=== PATIENT | female | born 1940 | race Caucasian/White ===

== ENCOUNTER 2017-11-09 15:09 | Outpatient (CLI) | payer MEDICARE | END 2017-11-09 15:10 | disposition home or self-care (01) | LOC: MERGE 15:09 → BICRAD 15:09 | PROVIDERS: ATTEND Internal Medicine | DX: R05 Cough (principal); J44.9 Chronic obstructive pulmonary disease, unspecified; I70.0 Atherosclerosis of aorta | CPT/HCPCS: 71046 ==

== ENCOUNTER 2018-01-22 18:35 | Observation (INO) | payer MEDICARE ==
[2018-01-22] MEDS ORDERED: Adacel (T-DAP) 0.5 ML VIAL ONE (19:03)
[2018-01-22] MEDS ORDERED: traMADol HCl 50 MG TAB ONE (19:35)
--- NOTE | 2018-01-22 20:42 | CT ---
CT OF BRAIN PERFORMED WITHOUT CONTRAST ENHANCEMENT: 01/22/18 HISTORY: Patient is status post fall, hitting occipital region of head. There is generalized ventricular and sulcal prominence with decreased attenuation of the periventricu lar white matter consistent with some chronic white matter change. There is no signs of intracerebral hemorrhage or extra-axial fluid collections. Mastoid air cells and visualized sinuses are clear. A p osterior scalp hematoma is noted. IMPRESSION: No acute intracranial abnormalities. POS: [facility]
--- NOTE | 2018-01-22 21:03 | CT ---
CT OF CERVICAL SPINE PERFORMED WITHOUT CONTRAST ENHANCEMENT: 01/22/18 HISTORY: Fall with neck pain. The vertebral bodies are normal in height. There is disc narrowing at C4-5 and more pronounced narrow ing at C5-6. There is minimal anterolisthesis of 3 to 4 mm of C4 on C5. There are degenerative facet changes present. At the C5-6 level, there is left sided foraminal narrowing. There is no CT evidence for fracture. Lung apices show emphysematous change. IMPRESSION: No CT evidence of fracture or the cervical spine. POS: [facility]
--- NOTE | 2018-01-22 21:31 | CT ---
CT OF CHEST PERFORMED WITHOUT CONTRAST ENHANCEMENT: 01/22/18 HISTORY: Patient fell backwards. Chest pain radiating to back. There are marked emphysematous lung changes seen. There is no focal infiltrative process. calcified g ranuloma is seen in the left lower lobe. The thoracic aorta shows atherosclerotic change that is normal in caliber. Moderate coronary artery c alcifications are present. Small hiatal hernia noted. The visualized liver parenchyma shows no focal findings. The right and left adrenal glands are normal . On the right side, there are some old right rib fractures, but what appear to be probable acute right fifth, sixth, and seventh rib fractures. On the left side there is buckling to multiple anterior rib s beginning at four and extending to the ninth rib. I do not see definite fracture lines but these co uld represent acute fractures. Clinical correlation as to whether patient has pain in that region. Th is does appear to represent an interval change as compared to a CT angio of the chest done 11/20/14. There are scoliotic changes to the spine and arthritic change. IMPRESSION: 1. Bilateral anterior rib fractures as discussed above. Some of these do appear acute in nature. No pneumothorax. 2. Emphysematous lung change. 3. Extensive coronary artery calcifications. POS: [facility]
[2018-01-22] MEDS ORDERED: Ketorolac Tromethamine 30 MG/ML VIAL ONE (21:35)
[2018-01-22] MEDS ORDERED: Dextrose 5% in Water 1,000 ML IV PRN (23:28)
[2018-01-22] MEDS ORDERED: hydrALAZINE 20 MG/ML VIAL SLOW IVP PRN (23:28)
[2018-01-22] MEDS ORDERED: Dextrose 50% Abboject 50 ML SYRINGE SLOW IVP PRN (23:28)
[2018-01-22] MEDS ORDERED: Ondansetron HCl/PF 4 MG/2 ML Vial IVP PRN (23:28)
[2018-01-22] MEDS ORDERED: Acetaminophen 1,000 MG in Premix Bag 1 BAG IVPB SCH (23:30)
[2018-01-22] MEDS ORDERED: Rib Fracture Protocol PO SCH (23:30)
[2018-01-22] MEDS ORDERED: Sodium Chloride 0.9% 1,000 ML IV SCH (23:30)
[2018-01-22] MEDS ORDERED: Cyclobenzaprine 10 MG TAB PO PRN (23:45)
[2018-01-23] MEDS: Ondansetron ODT 4 MG TAB PO PRN ×2 (00:21→06:34)
[2018-01-23] MEDS: traMADol HCl 50 MG TAB PO SCH ×4 (00:21→19:00)
[2018-01-23] MEDS: Acetaminophen 500 MG TAB PO SCH ×5 (00:29→19:05)
--- NOTE | 2018-01-23 01:22 | HP ---
DATE OF ADMISSION: 01/22/2018 REQUESTING PHYSICIAN: Nupur Hernandez MD ATTENDING SURGEON: Javier Loja MD HISTORY OF PRESENT ILLNESS: The patient is a 77-year-old woman who was moving a grocery ca rt up over a curb when she pulled it up and over and lost her balance and fell backward. The patient had immediate pain to her right posterior chest. She denied loss of consciousness. She denies any shortness of breath, dizziness, chest pain, or any syncopal type episodes prior to her fall. The pat ient was able to call 911 and she was brought to the emergency department by ground EMS where she und erwent evaluation and examination was noted to have rib fractures on her right side, specifically her right 5th, 6th, and 7th ribs, at which time we were asked to admit the patient for pain control. ALLERGIES: ZYRTEC, SERTRALINE. CURRENT MEDICATIONS: Carvedilol, prednisone, simvastatin, calcium, vitamin D3, Flexeril, ferrous sul fate, gabapentin, losartan, Symbicort, albuterol, budesonide, alprazolam, omeprazole, Tylenol, magnes ium oxide, Breo Ellipta. PAST MEDICAL HISTORY: Peripheral neuropathy, hypercholesterolemia, hypertension, COPD, breast cancer . PAST SURGICAL HISTORY: Right mastectomy. SOCIAL HISTORY: The patient lives at home independently, uses a walker to ambulate. Denies drug, al cohol, or tobacco use. FAMILY HISTORY: Hypertension. REVIEW OF SYSTEMS: Ten-point review of systems negative, unless otherwise stated. PHYSICAL EXAMINATION: VITAL SIGNS: Blood pressure 174/97, heart rate 92, respirations 18, oxygen saturation is 98% on room air, temperature is 97.6. GENERAL: The patient is resting comfortably in bed. She is awake, alert, and oriented, appropriate. Colby coma scale is 15. HEENT: Head is normocephalic, atraumatic. Eyes: Extraocular motion intact. PERRLA bilaterally. E ars are atraumatic without discharge. Nose atraumatic with discharge. Oropharynx is clear. NECK: Nontender. Trachea is midline. No JVD. CHEST: With scant rhonchi and scant wheezes bilaterally with moderate inspiratory and expiratory eff ort which is limited secondary to pain at this time. HEART: Regular rate and rhythm. ABDOMEN: Soft, flat, nontender with active bowel sounds. Pelvis is stable. EXTREMITIES: Neurovascularly intact x4. Capillary refill is less than 3 seconds. Pulses are 2+. BACK: Tender to palpation on the right posterior chest consistent with her rib fractures. No midlin e tenderness. LABORATORY DATA: There was no laboratory drawn in the emergency department. RADIOGRAPHIC FINDINGS: CT of the brain without contrast shows no acute intracranial abnormalities. CT of the C-spine without contrast shows no evidence of fracture of the cervical spine. CT of the ch est without contrast shows bilateral anterior rib fractures of the 5th, 6th, and 7th ribs. The patie nt also has a buckling on the left side extending from the 4th through 9th ribs and determine of whet her these are acute fractures or not. Of note, the patient did not have any left-sided chest pain up on my examination. ASSESSMENT AND PLAN: 1. Status post ground level fall. 2. Acute right 5th, 6th, and 7th rib fractures. 3. Chronic obstructive pulmonary disease. 4. Hypertension. 5. Pain is secondary to acute trauma. Plan will be to admit the patient to the surgical floor, initiate the rib fracture protocol, pulmonar y toilet, gastritis, mechanical deep vein thrombosis prophylaxis. Once we have an accurate home medi cine list, we will resume her home medications also. Evaluation examination, radiographic and labora tory findings will be discussed with Dr. Abraham after this dictation.
[2018-01-23 02:02] VITALS: BMI 23.3
[2018-01-23 05:51] LABS: #Eosinphils 0.1 thou/uL (0.0-0.7); #Lymphocytes 1.1 thou/uL (1.20-3.40); #Monocytes 0.7 thou/uL (0.11-0.59); #Neutrophils 6.7 thou/uL (1.40-6.50); %Basophils 0.4 % (0.0-1.0); %Eosinophils 1.6 % (0.0-10.0); %Lymphocytes 12.7 % (21.0-51.0); %Monocytes 8.3 % (0.0-10.0); Hemoglobin 12.8 g/dL (12.0-16.0); Mean Corpuscular HGB CONC 33.1 g/dL (32.0-36.0); Mean Corpuscular Hemoglobin 31.1 pg (27.0-31.0); Mean Corpuscular Volume 93.8 fl (81.0-99.0); Mean Platelet Volume 9.4 fL (7.4-10.4); Platelet Count 145 thou/uL (130-400); RBC Distribution Width 11.8 % (11.5-14.5); Red Blood Cell (RBC) Count 4.12 mill/uL (4.20-5.40); White Blood Cell (WBC) Count 8.7 thou/uL (4.8-10.8)
[2018-01-23 06:03] LABS: Anion Gap 12 mmol/L (10-20); BUN (Urea Nitrogen) 10 mg/dL (9.8-20.1); Calc. Creatinine Clearance 64 mL/min (70-130); Calcium 8.6 mg/dL (7.8-10.44); Carbon Dioxide 23 mmol/L (23-31); Chloride 96 mmol/L (98-107); Estimated GFR-MDRD Greater than 90; Glucose 130 mg/dL (83-110); Magnesium 1.6 mg/dL (1.6-2.6); Phosphorus 3.1 mg/dL (2.3-4.7); Potassium 3.8 mmol/L (3.5-5.1); Sodium 127 mmol/L (136-145)
[2018-01-23] MEDS: Ibuprofen 600 MG TAB PO SCH ×3 (06:38→21:31)
[2018-01-23] MEDS ORDERED: ALPRAZolam 0.25 MG TAB PO PRN (07:46)
[2018-01-23] MEDS ORDERED: Budesonide 0.5 MG/2 ML NEB NEB PRN (07:46)
--- NOTE | 2018-01-23 08:11 | RAD ---
SINGLE VIEW CHEST: Date: 01/23/18 COMPARISON: 01/04/11. HISTORY: Right rib fracture. FINDINGS: Single view of the chest shows normal sized cardiomediastinal silhouette with atherosclerotic calcifi cations in the aorta. Increased interstitial lung markings and hyperexpansion of the lungs are likely secondary to COPD. Biapical pleural thickening is seen. There is a calcified granuloma projecting ov er the left thorax, unchanged. There is no evidence of pneumothorax or pleural effusion. Atelectasis is seen in the lung bases. IMPRESSION: No evidence of acute cardiopulmonary disease. POS: [facility]
[2018-01-23] MEDS ORDERED: Losartan 25 MG TAB PO SCH ×2 (09:00→21:00)
[2018-01-23] MEDS ORDERED: Gabapentin 100 MG CAP PO SCH (09:00)
[2018-01-23] MEDS ORDERED: Promethazine 25 MG TAB PO PRN (09:28)
[2018-01-23] MEDS ORDERED: Promethazine HCl 25 MG/ML VIAL IM PRN (09:28)
[2018-01-23] MEDS ORDERED: Scopolamine 1.5 mg/72 hour Patch TD SCH (11:30)
[2018-01-23] MEDS: Polyethylene Glycol 3350 17 GM Packet PO SCH (11:42)
[2018-01-23] MEDS: Senokot S 8.6-50 MG TAB PO SCH ×2 (11:42→21:27)
[2018-01-23] MEDS: Carvedilol 3.125 MG TAB PO SCH ×2 (14:59→21:26)
[2018-01-23] MEDS: Famotidine 20 MG TAB PO SCH ×2 (14:59→21:26)
[2018-01-23] MEDS: predniSONE 5 MG TAB PO SCH (15:04)
[2018-01-23] MEDS: Gabapentin 300 MG CAP PO SCH (16:50)
[2018-01-23] MEDS ORDERED: Atorvastatin Calcium 10 MG TAB PO SCH (21:00)
[2018-01-23] MEDS ORDERED: Gabapentin 300 MG CAP PO SCH (21:00)
[2018-01-23] MEDS: Metoclopramide HCl 10 MG/2 ML VIAL IVP SCH (21:32)
[2018-01-24] MEDS: Acetaminophen 500 MG TAB PO SCH ×4 (00:03→17:35)
[2018-01-24] MEDS: traMADol HCl 50 MG TAB PO SCH ×4 (00:03→17:35)
[2018-01-24] MEDS: Ibuprofen 600 MG TAB PO SCH ×2 (05:56→15:02)
[2018-01-24] MEDS: Metoclopramide HCl 10 MG/2 ML VIAL IVP SCH ×2 (05:58→15:04)
[2018-01-24] MEDS: predniSONE 5 MG TAB PO SCH (09:03)
[2018-01-24] MEDS: Carvedilol 3.125 MG TAB PO SCH (09:03)
[2018-01-24] MEDS: Senokot S 8.6-50 MG TAB PO SCH (09:04)
[2018-01-24] MEDS: Gabapentin 300 MG CAP PO SCH (09:04)
[2018-01-24] MEDS: Famotidine 20 MG TAB PO SCH (09:04)
[2018-01-24] MEDS: Polyethylene Glycol 3350 17 GM Packet PO SCH (09:07)
--- NOTE | 2018-01-24 14:36 | PRG-2 ---
DATE OF SERVICE: 01/24/2018 ATTENDING PHYSICIAN: Scottie Jaffe M.D. SUBJECTIVE: The patient is a 77-year-old female who is status post ground level fall where she suffe red 3 right rib fractures, 5, 6 and 7. The patient reports pain is well controlled, but has refused to get out of bed. The patient also with poor p.o. intake secondary to nausea and vomiting. She was given a scopolamine patch yesterday evening and reports that has improved her nausea. Since then, s he did order breakfast this morning, but reports that food is bad. She at baseline walks with a walk er and has not yet tried to get out of bed since her injury. She is working with incentive spirometr y and has some improvement from yesterday. No acute events overnight. OBJECTIVE: VITAL SIGNS: This morning, temperature 97.8, pulse 82, respiratory rate 18, O2 sats 92% on 2 liters nasal cannula and blood pressure is 150/74. GENERAL: The patient is alert and oriented x4, in no acute distress. HEENT: Atraumatic, normocephalic. HEART: Regular rate and rhythm. LUNGS: Clear to auscultation bilaterally. Equal chest rise. No increased work of breathing. EXTREMITIES: Neurovascularly intact x4. LABORATORY DATA: No new labs to review. IMAGING: No new images to review. ASSESSMENT: 1. Status post ground level fall. 2. Acute right 5th, 6th and 7th rib fractures. 3. Chronic obstructive pulmonary disease. 4. Hypertension. 5. Acute traumatic pain. PLAN: Plan to continue with current pain regimen and encourage the patient to take p.r.n., tramadol for breakthrough pain so she can participate with physical therapy and occupational therapy. We will place rehab screening with the patient's inability to get out of bed. She is encouraged to continue incentive spirometry with underlying chronic obstructive pulmonary disease. Continue scopolamine pa tch for nausea and vomiting and continue to monitor her p.o. intake. Case management to work on janina campos in rehab facility for strength conditioning. The patient was seen and evaluated by Dr. Jaffe who formulated the plan with me.
[2018-01-24] MEDS ORDERED: Heparin 5,000 UNITS/ML VIAL SC SCH (15:00)
[2018-01-24 15:49] VITALS: BP 145/69; TEMP 98.9
--- NOTE | 2018-01-28 19:37 | DIS-2 ---
DATE OF ADMISSION: 01/22/2018 DATE OF DISCHARGE: 01/24/2018 RESIDENT: Aisha Cook D.O. ATTENDING PHYSICIAN: Dr. Jaffe. CONSULTATIONS: None. PROCEDURE/IMAGIN. Brain CT which showed no acute intracranial abnormality. 2. Cervical spine CT which showed no evidence for fracture and a chest CT which showed bilateral ant erior rib fractures. This is the 6th and 7th ribs and emphysematous lung changes. PRIMARY DIAGNOSES: 1. Status post ground level fall. 2. Acute right 5th, 6th and 7th rib fractures. 3. Chronic obstructive pulmonary disease. 4. Hypertension. 5. Acute traumatic pain. DISCHARGE MEDICATIONS: 1. Iron 20 mg p.o. daily. 2. vitamins. 3. Calcium carbonate. 4. Vitamin D3. 5. Xanax 0.25 mg p.o. q.6 hours p.r.n. 6. Pulmicort 1 puff inhaled q.i.d. p.r.n. 7. DuoNebs 1 puff inhaled q.6 hours. 8. Ventolin HFA 2 puffs inhaled q.4 hours. 9. Gabapentin 600 mg p.o. q.a.m., 900 mg p.o. at bedtime. 10. Losartan 100 mg p.o. daily. 11. Coreg 3.125 p.o. b.i.d. 12. Prednisone 5 mg p.o. q.a.m. 13. Zocor 20 mg p.o. at bedtime. 14. Omeprazole 20 mg p.o. b.i.d. 15. Ultram 100 mg p.o. q.6 hours p.r.n. 16. Zofran 4 mg p.o. q.6 hours p.r.n. nausea, vomiting. 17. Motrin 600 mg p.o. q.8 hours. 18. Flexeril 5 mg p.o. t.i.d. p.r.n. 19. Tylenol 1000 mg p.o. q.6 hours. DISCONTINUED MEDICATIONS: None. HISTORY OF PRESENT ILLNESS/HOSPITAL COURSE: The patient is a 77-year-old female who is status post g round level fall where she sustained 3 right rib fractures, 5, 6 and 7. The patient did have some na usea and vomiting and poor p.o. intake at first, but resolved with scopolamine patch. She reported s evere pain with rib fractures and because of them was having difficulty taking big deep breaths and p erforming ADLs. Case management worked on placement and found her a place at rehab facility. Recomm end continuing incentive spirometry and PT and OT. No operative intervention needed. The patient es tablished diet and bowel and bladder function well. She was discharged to rehab facility in stable c ondition with a regular diet. DISCHARGE INSTRUCTIONS: 1. Location: Rehabilitation. 2. Diet: Regular. 3. Activity: As tolerated. Continue incentive spirometry 10 times per hour. 4. Follow up with Dr. Christina Gunn, primary care provider in 1-2 weeks.
== END 2018-01-24 18:30 ==
LOC: ERS 18:35 → SURG B 23:17
PROVIDERS: ADMIT Surgery; ATTEND Surgery
DX: S22.41XA Multiple fractures of ribs, right side, initial encounter for closed fracture (principal); J44.9 Chronic obstructive pulmonary disease, unspecified; I10 Essential (primary) hypertension; G89.11 Acute pain due to trauma; Z88.8 Allergy status to other drugs, medicaments and biological substances; Z79.51 Long term (current) use of inhaled steroids; Z79.52 Long term (current) use of systemic steroids; Z79.899 Other long term (current) drug therapy; W18.39XA Other fall on same level, initial encounter
CPT/HCPCS: 70450; 71045; 71250; 72125; 80048; 83735; 84100; 85025; 94640 ×3; 96374; 96375; 96376; 97116; 97530 ×2; 99285; G0378; G8978; G8979; 36415; 90715; G0390; J0131; J0360; J1644; J1885; J2765; J7620; Q0162

== ENCOUNTER 2018-04-08 14:18 | Outpatient (CLI) | payer MEDICARE | END 2018-04-08 14:19 | disposition home or self-care (01) | LOC: BICMAMMO 14:18 | PROVIDERS: ATTEND Internal Medicine | DX: Z12.31 Encounter for screening mammogram for malignant neoplasm of breast (principal); Z80.3 Family history of malignant neoplasm of breast; Z85.3 Personal history of malignant neoplasm of breast; Z80.8 Family history of malignant neoplasm of other organs or systems | CPT/HCPCS: 77063; 77067 ==

== ENCOUNTER 2018-04-15 09:19 | Outpatient (CLI) | payer MEDICARE ==
--- NOTE | 2018-04-15 10:17 | RAD ---
PA AND LATERAL CHEST: Comparison: 12-13-17 History: Dyspnea. FINDINGS: Heart size is within normal limits. There are atherosclerotic changes of the aorta. Chronic lung cruz ges are stable. Surgical clips are seen in the right axilla. IMPRESSION: Stable chest. POS: [facility]
== END 2018-04-15 09:20 | disposition home or self-care (01) ==
LOC: RAD 09:19
PROVIDERS: ATTEND Internal Medicine Critical Care Medicine
DX: R06.00 Dyspnea, unspecified (principal)
CPT/HCPCS: 71046

== ENCOUNTER 2018-04-22 08:55 | Outpatient (CLI) | payer MEDICARE ==
--- NOTE | 2018-04-23 11:49 | RAD ---
MODIFIED BARIUM SWALLOW: Date: 04/22/18 HISTORY: Dysphagia. Difficulty swallowing. FLUORO TIME: 40 seconds. FINDINGS/IMPRESSION: Exam performed by speech pathology with multiple consistencies. Video review is available and shows g ood bolus formation and retropulsion. Good initiation of swallowing. With the thinner liquids, some d eep penetration was apparent. Moderate pooling within the vallecula and piriform sinuses with moderat e clearance upon additional swallows. No evidence of obstruction. No wilberto aspiration. Difficulty with the barium tablet is documented, getting hung at the vallecula and again at the mid e sophagus above the level of the aortic arch. The esophagus below the level of the hypopharynx was incompletely evaluated. Please see separate jose lopes report from speech pathology. POS: [facility]
== END 2018-04-22 08:56 | disposition home or self-care (01) ==
PROVIDERS: ATTEND Otolaryngology Plastic Surgery within the Head & Neck
DX: R13.13 Dysphagia, pharyngeal phase (principal); R63.3 Feeding difficulties
CPT/HCPCS: 74230; G8996-GN-CJ; G8997-GN-CI; G8998-GN-CJ

== ENCOUNTER 2018-05-16 11:58 | Day surgery (SDC) | payer MEDICARE ==
[2018-05-15 10:15] VITALS: BMI 22.4
--- NOTE | 2018-05-16 16:11 | OP ---
DATE OF PROCEDURE: 05/16/2018 TITLE OF PROCEDURE: Esophagogastroduodenoscopy with balloon dilation and biopsy. PREPROCEDURE DIAGNOSES: 1. Dysphagia. 2. History of distal Schatzki ring. 3. Chronic globus sensation. POSTPROCEDURE DIAGNOSES: 1. Examination to second portion of duodenum. 2. Nonobstructing distal Schatzki ring at 37 cm from the incisors, dilated with a 15 mm TTS balloon. 3. A 3 cm hiatal hernia. 4. Normal stomach. 5. Normal duodenum. PROCEDURE IN DETAIL: Written informed consent was obtained. The patient was brought to the endoscop y suite. Total intravenous anesthesia was provided by Mr. Marquis Slade CRNA. The patient was placed in the left lateral decubitus position. A bite block was inserted into the mouth. A AisleFinder d iagnostic gastroscope was introduced into the oral cavity and the esophagus was carefully intubated. The gastroscope was advanced under direct visualization to the second portion of the duodenum. Endo scopic findings revealed a mild to moderate partially obstructing distal Schatzki ring that was ident ified at 37 cm from the incisors. The gastroscope was able to traverse the ring without dilute relat ion at that point. A 3 cm hiatal hernia was identified. The stomach and duodenum were examined and appeared unremarkable. The retroflexed view demonstrated the hiatal hernia. Using a 15 mm TTS ballo on, the distal Schatzki ring was dilated at the three different stages of 12 mm, 13.5 mm, and 15 mm b alloon diameter. Post-dilation, the ring appeared to be broken and a small mucosal disruption was id entified at 2 points. There was no active bleeding or overt perforation. Biopsies were obtained in the mid esophagus at 30 cm for histopathology. The stomach and esophagus were decompressed as the en doscope was completely removed from the patient. She was transferred to the day stay surgery area fo r post-procedure monitoring. There were no immediate complications. RECOMMENDATIONS: 1. Await biopsy results. 2. Ask the patient to call me in 1 week for biopsy results. 3. Continue omeprazole. 4. Discontinue the use of naproxen - diphenhydramine pill at bedtime. 5. Discontinue use of ibuprofen. 6. Use Tylenol instead for analgesia. 7. Follow up in the GI Clinic in 3 weeks or 06/12/2018.
== END 2018-05-16 15:10 | disposition home or self-care (01) ==
LOC: SDC 11:58
PROVIDERS: ATTEND Internal Medicine Gastroenterology
PROC: 0D738ZZ Dilation of Lower Esophagus, Via Natural or Artificial Opening Endoscopic (ICD-10-PCS; principal; 2018-05-16)
PROC: 0DB28ZX Excision of Middle Esophagus, Via Natural or Artificial Opening Endoscopic, Diagnostic (ICD-10-PCS; 2018-05-16)
DX: K22.2 Esophageal obstruction (principal); K44.9 Diaphragmatic hernia without obstruction or gangrene; K21.0 Gastro-esophageal reflux disease with esophagitis; J44.9 Chronic obstructive pulmonary disease, unspecified; Z87.891 Personal history of nicotine dependence; Z86.711 Personal history of pulmonary embolism; Z79.82 Long term (current) use of aspirin; Z79.899 Other long term (current) drug therapy; Z88.8 Allergy status to other drugs, medicaments and biological substances
CPT/HCPCS: 88305; 88312; 88313

== ENCOUNTER 2018-05-27 08:55 | Outpatient (CLI) | payer MEDICARE ==
--- NOTE | 2018-05-27 09:31 | RAD ---
CHEST 2 VIEWS: COMPARISON: 04/15/18. History Dyspnea. FINDINGS: Atherosclerosis of the aorta. Normal cardiac silhouette. The pulmonary vessels and hilum are normal . Costophrenic angles are clear. Hyperinflation with chronic changes. No consolidation or masses. No pneumothorax or osseous abnormalities. IMPRESSION: 1. Hyperinflation. Chronic changes. 2. Atherosclerosis. POS: [facility]
== END 2018-05-27 08:56 | disposition home or self-care (01) ==
LOC: RAD 08:55
PROVIDERS: ATTEND Internal Medicine Critical Care Medicine
DX: R06.00 Dyspnea, unspecified (principal); I70.0 Atherosclerosis of aorta; R91.8 Other nonspecific abnormal finding of lung field
CPT/HCPCS: 71046

== ENCOUNTER 2018-06-24 14:04 | Outpatient (CLI) | payer MEDICARE ==
[2018-06-24] MEDS ORDERED: ISOVUE-370 76%-LOCM 1 ML ONE (15:15)
--- NOTE | 2018-06-24 15:53 | CT ---
NONCONTRAST HIGH RESOLUTION CT THORAX: DATE: 06/24/2018. HISTORY: Coughing since ay. Difficulty swallowing. COMPARISON: CTA chest on 11/20/[address] thorax on 01/22/2018. FINDINGS: Again noted are emphysematous changes seen throughout the lungs bilaterally with larger bullous emphy sematous changes at each lung base similar to prior exams. There is biapical pleural and parenchymal scarring, some of which is partially calcified. This is also stable compared to the prior exams. T here is a parenchymal density seen at the anterior aspect of the right lung base probably in the savi on of the right middle lobe adjacent to the fissure. This is probably related to an area of pleural and parenchymal scarring. No discrete pulmonary nodule or mass is seen and there is no pleural effus ion identified. Vascular calcifications are again seen in the coronary arteries and involving the thoracic aorta. Lack of intravenous contrast limits sensitivity for evaluation of vascular structures and the mediast inum, and no definite enlarged lymph nodes are seen. Surgical clips are seen in the right axilla, and there is persistent skin thickening involving the ri ght breast unchanged from prior study in 2014. No significant bronchiectasis present and there are no ground-glass densities or subpleural reticular opacities appreciated. No other interval change from the prior exams. Degenerative changes are aga in seen in the spine and there are bilateral remote rib fractures again seen. IMPRESSION: 1. Chronic obstructive pulmonary disease and chronic lung changes similar to the prior study. Sligh tly greater pleural and parenchymal density is seen in the right middle lobe adjacent to the hemidiap hragm which is thought to be related to a greater degree of pleural and parenchymal scarring. 2. Prominent vascular calcifications. 3. Remote bilateral rib fractures. POS: [facility]
--- NOTE | 2018-06-24 16:51 | CT ---
CT NECK WITH CONTRAST: INDICATIONS: Cough. Difficulty swallowing. TECHNIQUE: Multiple axial tomograms obtained through the neck with IV enhancement. FINDINGS: The parotid glands and submandibular glands appear normal and symmetric. The thyroid is unremarkable , with tiny, low density nodules. The nasopharynx is unremarkable. The oropharynx and the base of the tongue are unremarkable. The hypopharynx is unremarkable. The right piriform sinus is asymmetrically enlarged when compared t o the left. The larynx appears unremarkable. Review of lymph node level showed no evidence of level I adenopathy. No level II, level III, or leve l IV adenopathy is seen. Level V lymph nodes are unremarkable. The nuclear station operator space, the parapharyngeal space, and the retropharyngeal space are unremarkable. Mild atherosclerotic calcification in the right bulb and proximal right ICA. Degenerative changes in the cervical spine. Posterior listhesis at C5-C6 with spondylosis encroachin g into the spinal canal. The paranasal sinuses appear well aerated. Images through the lung apices show chronic lung parenchymal changes with early emphysematous bullous change. Apical pleural thickening and apical pleural calcification. There is prominent atherosclerotic calcification and evidence of significant stenosis at the origin o f the left subclavian artery, at the aortic arch. IMPRESSION: 1. No evidence of neck mass or adenopathy. 2. 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 3. Chronic lung changes seen in the lung apices, as described. POS: [facility]
== END 2018-06-24 14:05 | disposition home or self-care (01) ==
LOC: BICCT 14:04
PROVIDERS: ATTEND Internal Medicine
DX: M54.2 Cervicalgia (principal); R05 Cough; R13.10 Dysphagia, unspecified; J44.9 Chronic obstructive pulmonary disease, unspecified; I70.8 Atherosclerosis of other arteries; S22.43XA Multiple fractures of ribs, bilateral, initial encounter for closed fracture
CPT/HCPCS: 70491; 71250

== ENCOUNTER 2018-07-04 11:01 | Outpatient (CLI) | payer MEDICARE ==
--- NOTE | 2018-07-04 14:59 | MRI ---
BRAIN MRI WITH AND WITHOUT CONTRAST: INDICATION: Hyponatremia. FINDINGS: There is patient motion degrading image quality. Moderate chronic ischemic disease is present. Ther e is mild prominence of the ventricular system. No evidence of intracranial hemorrhagic susceptibili ty. There is no restricted diffusion. No evidence of an enhancing intraaxial mass. Skull base flow voids are maintained. Teller anterior lenses are absent. There is minimal mucosal thickening of th e paranasal sinuses. IMPRESSION: 1. No evidence of an acute intracranial abnormality. 2. Moderate chronic ischemic disease. POS: [facility]
== END 2018-07-04 11:02 | disposition home or self-care (01) ==
LOC: MRI 11:01
PROVIDERS: ATTEND Internal Medicine
DX: E87.1 Hypo-osmolality and hyponatremia (principal); R13.10 Dysphagia, unspecified; I67.82 Cerebral ischemia
CPT/HCPCS: 70553

== ENCOUNTER 2018-10-10 09:58 | Outpatient (CLI) | payer MEDICARE ==
[2018-10-10] MEDS ORDERED: ISOVUE-370 76%-LOCM 1 ML ONE (10:22)
--- NOTE | 2018-10-10 13:13 | CT ---
CT ARTERIOGRAM CHEST WITH IV CONTRAST AND 3D MIP IMAGING: Date: 10/10/18 HISTORY: Vascular disease. Abnormal CTA neck. Subclavian stenosis. COMPARISON: 11/20/14. FINDINGS: Parenchymal scarring at the right apex is similar in appearance to the prior study. Lungs remain hype rinflated with scattered emphysematous changes. Good contrast opacification of the pulmonary arteries and thoracic aorta with normal branching of the great vessels. Good flow into each carotid and vertebral system. Moderate arterial calcification, mo st pronounced at the proximal to mid portion of the left subclavian artery. A short segment focus of approximately 50% stenosis at the ascending portion of the left subclavian artery is slightly greater than on the 2015 exam. Old bilateral rib fractures are apparent. IMPRESSION: 1. Atherosclerosis. Short segment focus of mild stenosis of the proximal left subclavian artery, sli ghtly worsened since the 2015 exam. 2. COPD. POS: [facility]
== END 2018-10-10 09:59 | disposition home or self-care (01) ==
LOC: BICCT 09:58
PROVIDERS: ATTEND Thoracic Surgery (Cardiothoracic Vascular Surgery)
DX: I72.8 Aneurysm of other specified arteries (principal); J44.9 Chronic obstructive pulmonary disease, unspecified; I70.8 Atherosclerosis of other arteries
CPT/HCPCS: 71275; 82565

== ENCOUNTER 2018-10-31 15:28 | Outpatient (CLI) | payer MEDICARE ==
--- NOTE | 2018-10-31 19:10 | RAD ---
CHEST TWO VIEWS: History: COPD. Cough. FINDINGS: Comparison is made with exam of 05-27-18. The heart size is normal. The aorta is tortuous. Chronic parenchymal changes and evidence of old gran ulomatous disease again seen. No focal areas of consolidation, pneumothoraces or pleural effusions id entified. The aorta is tortuous. The bony structures are stable. IMPRESSION: Stable exam. No acute cardiopulmonary process. POS: [facility]
== END 2018-10-31 15:29 | disposition home or self-care (01) ==
LOC: BICRAD 15:28
PROVIDERS: ATTEND Internal Medicine
DX: R06.00 Dyspnea, unspecified (principal); R05 Cough
CPT/HCPCS: 36415; 71046; 80053; 83880; 84443; 85027

== ENCOUNTER 2018-12-09 16:36 | Inpatient (IN) | payer MEDICARE ==
[2018-12-09 17:20] LABS: #Lymphocytes 0.6 thou/uL (1.20-3.40); #Monocytes 0.3 thou/uL (0.11-0.59); #Neutrophils 7.1 thou/uL (1.40-6.50); %Eosinophils 0.5 % (0.0-10.0); %Lymphocytes 7.7 % (21.0-51.0); %Monocytes 3.4 % (0.0-10.0); %Neutrophils 88.3 % (42.0-75.0); Hemoglobin 12.6 g/dL (12.0-16.0); Mean Corpuscular HGB CONC 31.6 g/dL (32.0-36.0); Mean Corpuscular Hemoglobin 30.7 pg (27.0-31.0); Mean Corpuscular Volume 97.2 fL (78.0-98.0); RBC Distribution Width 12.2 % (11.5-14.5); Red Blood Cell (RBC) Count 4.09 mill/uL (4.20-5.40); White Blood Cell (WBC) Count 8.1 thou/uL (4.8-10.8)
[2018-12-09 17:30] LABS: Large Platelets SLIGHT; MDiff Complete? YES; Mean Platelet Volume 8.7 fL (7.4-10.4); Platelet Count 240 thou/uL (130-400); Platelet Morphology Comment Appears Adequate; RBC Morphology Normal
[2018-12-09 17:34] LABS: ALT (SGPT) 23 U/L (8-55); AST (SGOT) 15 U/L (5-34); Albumin 4.1 g/dL (3.4-4.8); Alkaline Phosphatase 60 U/L (40-150); Anion Gap 11 mmol/L (10-20); BUN (Urea Nitrogen) 11 mg/dL (9.8-20.1); Bilirubin, Total 0.4 mg/dL (0.2-1.2); Calc. Creatinine Clearance 0 mL/min (70-130); Calcium 9.6 mg/dL (7.8-10.44); Carbon Dioxide 26 mmol/L (23-31); Chloride 95 mmol/L (98-107); Estimated GFR-MDRD 81; Globulin 2.5 g/dL (2.4-3.5); Glucose 137 mg/dL (83-110); Potassium 4.7 mmol/L (3.5-5.1); Protein, Total 6.6 g/dL (6.0-8.3); Sodium 127 mmol/L (136-145)
[2018-12-09 17:41] LABS: Bilirubin Negative (Negative); Blood, Urine Negative (Negative); Clarity CLEAR (Clear); Glucose, Urine (Dipstick) Negative (Negative); Leukocyte Negative (Negative); Nitrite Negative (Negative); Protein, Urine (Dipstick) Negative (Neg-Trace); Specific Gravity, Urine 1.005 (1.002-1.036); Urobilinogen 0.2 mg/dL (0.2-1.0); pH, Urine 7.5 (5.0-9.0)
--- NOTE | 2018-12-09 18:24 | RAD ---
CHEST ONE VIEW: History: Dyspnea. Comparison: 10-31-18 FINDINGS: Cardiac silhouette is magnified by projection. Pulmonary vasculature is unremarkable. Mediastinum is midline with aortic calcification. Lungs remain hyperinflated. Old bilateral rib fractures. Calcified granulomata are consistent with healed granulomatous disease. Scarring in each lung base is unchange d in appearance. Metallic clips at the right axilla. No evidence of pneumothorax. IMPRESSION: 1. Atherosclerosis. 2. Pulmonary hyperinflation and other chronic type findings appear stable. POS: [facility]
--- NOTE | 2018-12-10 00:18 | HP ---
PRIMARY CARE PHYSICIAN: Dr. Gunn. THE PATIENT'S MANAGER HAIR: Dr. Hudson. CHIEF COMPLAINT: "I came to the hospital because I could not function and was feeling very lightheaded." HISTORY OF PRESENT ILLNESS: Ms. Carver is a very pleasant 78-year-old female, who has a history of hypertension. She was in her usual state of health until a few weeks prior to admission. The patient says that she has been feeling lightheaded and woozy and she says she always feels that way, but she felt extremely bad this morning. She attributes the start of her symptoms when she had "a bad fall in January." She says that she also has a history of an esophageal stricture. She has had dilated at least twice over the past few years by Dr. Aster Hudson and she says that in the last few months, she started coughing and says that she cannot eat anything solid and she also notes that she has had some significant weight loss over the last month or so. She sees a speech therapist on a regular basis. However, because of her feeling lightheaded and generally weak and woozy, she came to the ER and was found to be hyponatremic and it is suspected that this may be the cause of her symptoms. She denies any other complaints other than being recently diagnosed with a urinary tract infection and was having some lower back and lower abdominal pain, but she says this is better now. REVIEW OF SYSTEMS: All systems were reviewed and are negative except for that mentioned in the history of present illness. PAST MEDICAL HISTORY: Significant for hypertension, COPD with chronic respiratory failure, breast cancer, peripheral neuropathy, restless legs syndrome, esophageal strictures, and diverticulitis. PAST SURGICAL HISTORY: She has had a lumpectomy on the right and bunion surgery. ALLERGIES: ZYRTEC, SERTRALINE, AND ZOLOFT. SOCIAL HISTORY: She is . She lives alone. Her daughter lives across the street from her. She smoked about a pack a day to 3 packs a day for 30 years, but she quit in 1988 and she did drink alcohol occasionally. She is . Her in 2000. Her code status is full code, but she says if her condition is futile, she would want 3 doctors to make the decision to end life support, but she would want to be a full code at this time. FAMILY HISTORY: Significant for heart disease. CURRENT MEDICATIONS: 1. Carvedilol 3.125 mg twice daily. 2. Prednisone 5 mg daily. 3. Simvastatin 20 mg daily. 4. Calcium and vitamin D daily. 5. Iron sulfate 28 mg daily. 6. Losartan 100 mg daily. 7. Alprazolam 0.25 mg q.6 hours as needed. 8. Omeprazole 1 tablet twice a day. 9. Tylenol 500 mg as needed. 10. Lyrica 150 mg twice a day. 11. Magnesium oxide 300 mg once daily. 12. Ipratropium inhaler p.r.n. 13. Aspirin 81 mg daily. PHYSICAL EXAMINATION: GENERAL: She is alert and oriented to person, place, and time. She is well developed and well nourished. She does appear a bit thin and chronically fatigued. VITAL SIGNS: Blood pressure was 169/99, heart rate 94, respiratory rate of 20, temperature is 98.2, and O2 saturation 98% on room air. HEENT: Pupils are equal, round, and reactive. Extraocular muscles are intact. Her sclerae anicteric. Throat, there is no erythema. No exudates. NECK: No adenopathy. No bruits. LUNGS: Clear to auscultation. There is no wheezing, no rales, no rhonchi. CARDIOVASCULAR: She had a normal S1 and S2. There was no S3 or S4. No murmurs, clicks, or rubs. ABDOMEN: Soft, nontender, and nondistended. Positive for bowel sounds. No rebound. No guarding. EXTREMITIES: There is no edema. She has some significant varicose veins. She did have some mild tenderness on the left quispe area. No crepitus in the joints. NEUROLOGIC: Her cranial nerves 2 through 12 are intact. Her muscle strength is intact. SKIN AND INTEGUMENT: There are no skin changes. No rash. LABORATORY DATA: On her EKG, sinus rhythm, heart rate 89. There are no ST wave changes. This is by my reading. Her sodium 127, potassium 4.7, chloride is 95, CO2 is 26, BUN 11, creatinine 0.7, glucose is 137. White blood cell count is 8.1, hemoglobin 12.6, hematocrit is 39.8, and platelet count is 240. Urinalysis was negative. ASSESSMENT: This is a pleasant 78-year-old female, who presents with generalized weakness and she was found to be hyponatremic. In review of her records, she has a history of hyponatremia in the past. It likely as a result of poor oral intake. 1. For the hyponatremia, we will get urine osmolality as well as urine sodium to help distinguish the cause, again it is suspected due to the poor oral intake. We will place her on a low rate of normal saline hydration for now. 2. Esophageal stricture. She says that Dr. Hudson told her that she could never have another esophageal dilatation at least not at this time. We will consult Speech Therapy to see what is the best consistency diet for her. 3. Hypertension. Continue her home medications as well as p.r.n. hydralazine. 4. Chronic obstructive pulmonary disease. Again, continue her home medications plus DuoNebs p.r.n., this appears to be compensated. 5. Left lower extremity discomfort. She says she has a history of pulmonary embolism in the past. For this reason, we will go ahead and ultrasound her lower extremities primarily as a precaution. Job ID: [id number]
[2018-12-10] MEDS ORDERED: hydrALAZINE 20 MG/ML VIAL SLOW IVP PRN (01:19)
[2018-12-10] MEDS ORDERED: Acetaminophen 325 MG TAB PO PRN ×2 (01:19→02:44)
[2018-12-10] MEDS ORDERED: Ondansetron PF 4 MG/2 ML Vial IVP PRN (02:44)
[2018-12-10] MEDS ORDERED: Sodium Chloride 0.9% 1,000 ML IV SCH (02:44)
[2018-12-10] MEDS ORDERED: Ondansetron ODT 4 MG TAB SL PRN (02:44)
[2018-12-10 03:11] VITALS: BMI 21.0
[2018-12-10 05:44] LABS: #Basophils 0.1 thou/uL (0.0-0.2); #Eosinphils 0.2 thou/uL (0.0-0.7); #Lymphocytes 1.7 thou/uL (1.20-3.40); #Neutrophils 7.9 thou/uL (1.40-6.50); %Basophils 0.7 % (0.0-1.0); %Eosinophils 1.4 % (0.0-10.0); %Lymphocytes 15.4 % (21.0-51.0); %Neutrophils 73.5 % (42.0-75.0); Mean Corpuscular HGB CONC 33.1 g/dL (32.0-36.0); Mean Corpuscular Volume 96.6 fL (78.0-98.0); Mean Platelet Volume 8.9 fL (7.4-10.4); Platelet Count 233 thou/uL (130-400); RBC Distribution Width 12.2 % (11.5-14.5); Red Blood Cell (RBC) Count 4.06 mill/uL (4.20-5.40); White Blood Cell (WBC) Count 10.7 thou/uL (4.8-10.8)
[2018-12-10] MEDS: Sodium Chloride 0.9% 1,000 ML IV SCH ×2 (05:57→16:23)
[2018-12-10 05:59] LABS: Anion Gap 13 mmol/L (10-20); BUN (Urea Nitrogen) 14 mg/dL (9.8-20.1); Calc. Creatinine Clearance 53 mL/min (70-130); Carbon Dioxide 25 mmol/L (23-31); Chloride 97 mmol/L (98-107); Estimated GFR-MDRD 86; Glucose 81 mg/dL (83-110); Sodium 131 mmol/L (136-145)
[2018-12-10] MEDS: Enoxaparin Sodium 40 MG/0.4 ML SYRINGE SC SCH (09:12)
--- NOTE | 2018-12-10 10:44 | ULT ---
BILATERAL LOWER EXTREMITY VENOUS DUPLEX STUDY: Technique: Deep veins of both lower extremities evaluated with color doppler, spectral analysis and c ompression. Indications: Lower extremity pain and edema. History of pulmonary embolus. FINDINGS: Deep veins of both lower extremities show normal blood flow and compression. No evidence of DVT ident ified. IMPRESSION: Negative bilateral lower extremity venous duplex exam. POS: [facility]
[2018-12-10] MEDS ORDERED: Acetaminophen 500 MG TAB PO PRN ×2 (13:14→13:55)
[2018-12-10] MEDS ORDERED: Ibuprofen 200 MG TAB PO PRN (13:22)
[2018-12-10] MEDS ORDERED: diphenhydrAMINE 25 MG CAP PO PRN (13:56)
[2018-12-10] MEDS ORDERED: PROVENTIL INHALER 6.7 G (200 INHALATIONS) INH PRN (14:27)
[2018-12-10] MEDS ORDERED: PROVENTIL INHALER 6.7 G (200 INHALATIONS) INH SCH (14:30)
--- NOTE | 2018-12-10 14:37 | PDOC.PN ---
- Subjective Encounter Start Date: 12/10/18 Encounter Start Time: 08:00 Pt seen for followup re: hyponatremia. says she feels better. No nausea or vomiting. - Objective Resuscitation Status - Order Detail: 12/09/18 23:43 Resuscitation Status Routine Resuscitation Status: FULL: Full Resuscitation MAR Reviewed: Yes Vital Signs & Weight: Vital Signs (12 hours) Temp Pulse Resp BP Pulse Ox 12/10/18 13:52 89 18 96 12/10/18 11:55 89 18 139/71 95 12/10/18 08:00 97.6 F 93 18 176/83 H 95 12/10/18 06:25 85 18 95 12/10/18 04:00 97.6 F 90 20 148/74 H 97 Weight Weight 107 lb 9.6 oz Result Diagrams: 12/10/18 04:27 12/10/18 04:27 EKG Reviewed by me: Yes (Tele: NSR) Phys Exam - Physical Examination Constitutional: NAD HEENT: moist MMs Neck: supple Respiratory: clear to auscultation bilateral Cardiovascular: RRR Gastrointestinal: soft Neurological: moves all 4 limbs Psychiatric: normal affect, A&O x 3 Dx/Plan (1) Hyponatremia Code(s): E87.1 - HYPO-OSMOLALITY AND HYPONATREMIA Status: Acute Comment: sodium improved to 131 today (2) COPD (chronic obstructive pulmonary disease) Status: Chronic Comment: stable (3) GERD (gastroesophageal reflux disease) Code(s): K21.9 - GASTRO-ESOPHAGEAL REFLUX DISEASE WITHOUT ESOPHAGITIS Status: Chronic Comment: stable (4) HTN (hypertension) Code(s): I10 - ESSENTIAL (PRIMARY) HYPERTENSION Status: Chronic Comment: controlled - Plan PT/OT, out of bed/ambulate * . Review of Systems - Review of Systems Constitutional: weakness Respiratory: negative: Cough, Shortness of Breath, SOB with Excertion, Pleuritic Pain, Wheezing Cardiovascular: negative: chest pain, palpitations, orthopnea, paroxysmal nocturnal dyspnea, edema, light headedness - Medications/Allergies Allergies/Adverse Reactions: Allergies Allergy/AdvReac Type Severity Reaction Status Date / Time cetirizine HCl [From Zyrtec] Allergy UNKNOWN Verified 12/10/18 01:42 sertraline HCl [From Zoloft] Allergy UNKNOWN Verified 12/10/18 01:42 Medications: Current Medications Acetaminophen (Tylenol) 1,000 mg PO QID PRN PRN Reason: Pain Acetaminophen (Tylenol) 500 mg PO HSPRN PRN PRN Reason: SLEEP Albuterol Sulfate (Proventil Hfa) 2 puff INH Q4H PRN PRN Reason: SOB &/or Wheezing Albuterol/Ipratropium (Duoneb) 3 ml NEB [id number] PRN PRN Reason: SOB &/or Wheezing Albuterol/Ipratropium (Duoneb) 3 ml NEB QID-RT [facility] Last Admin: 12/10/18 13:54 Dose: Not Given Alprazolam (Xanax) 0.25 mg PO Q8H PRN PRN Reason: Anxiety Aspirin (Ecotrin) 81 mg PO Q2DAYS [facility] Atorvastatin Calcium (Lipitor) 10 mg PO HS [facility] Calcium/Vitamin D (Caltrate 600 + Vit D) 1 tab PO DAILY [facility] Carvedilol (Coreg) 3.125 mg PO BID [facility] Cholecalciferol (Vitamin D3) 2,000 units PO QAM [facility] Cyanocobalamin (Vitamin B-12) 1,000 mcg PO DAILY [facility] Diphenhydramine HCl (Benadryl) 25 mg PO HSPRN PRN PRN Reason: SLEEP Docusate Sodium (Colace) 100 mg PO DAILY [facility] Enoxaparin Sodium (Lovenox) 40 mg SC 0900 [facility] Last Admin: 12/10/18 09:12 Dose: 40 mg Ferrous Gluconate (Fergon) 324 mg PO DAILY [facility] Hydralazine HCl (Apresoline) 10 mg SLOW IVP Q4H PRN PRN Reason: SBP > 180 and HR < 70 Sodium Chloride (Normal Saline 0.9%) 1,000 mls @ 75 mls/hr IV .[id number] [facility] Last Admin: 12/10/18 05:57 Dose: 1,000 mls Ibuprofen (Motrin) 200 mg PO Q6H PRN PRN Reason: Pain Lactulose (Lactulose) 20 gm PO Q2H PRN PRN Reason: Constipation Losartan Potassium (Cozaar) 100 mg PO HS [facility] Magnesium Oxide (Magnesium Oxide) 250 mg PO BID [facility] Metronidazole (Flagyl) 500 mg PO BID [facility] Mometasone Furoate/Formoterol Fumar (Dulera 200 Mcg/5 Mcg Inhaler) 2 puff INH BID-RT [facility] Pantoprazole Sodium (Protonix) 40 mg PO DAILY [facility] Last Admin: 12/10/18 09:11 Dose: 40 mg Potassium [Potassium (] 99 Mg) 0 each PO DAILY [facility] [Aleve Pm] 1 Tablet 0 each PO HS [facility] Prednisone (Prednisone) 5 mg PO QAM-WM [facility] Pregabalin (Lyrica) 150 mg PO BID [facility] Sodium Chloride (Flush - Normal Saline) 10 ml IVF Q12HR [facility] Last Admin: 12/10/18 09:11 Dose: Not Given Sodium Chloride (Flush - Normal Saline) 10 ml IVF PRN PRN PRN Reason: Saline Flush
[2018-12-10] MEDS: Mometasone/Formoterol 120 PUFF INHALER INH SCH (19:07)
[2018-12-10] MEDS: metroNIDAZOLE 500 MG TAB PO SCH (20:18)
[2018-12-10] MEDS: Pregabalin 75 MG CAP PO SCH (20:19)
[2018-12-10] MEDS: Magnesium Oxide 250 MG TAB PO SCH (20:19)
[2018-12-10] MEDS: Carvedilol 3.125 MG TAB PO SCH (20:20)
[2018-12-10] MEDS ORDERED: NAPROXEN SOD PO SCH (21:00)
[2018-12-10] MEDS ORDERED: Losartan 25 MG TAB PO SCH (21:00)
[2018-12-10] MEDS ORDERED: Atorvastatin Calcium 10 MG TAB PO SCH (21:00)
[2018-12-10] MEDS ORDERED: DIPHENHYDRAMINE PO SCH (21:00)
[2018-12-10] MEDS ORDERED: ALEVE PM PO SCH (21:00)
[2018-12-10] MEDS: ALPRAZolam 0.25 MG TAB PO PRN (22:08)
[2018-12-11] MEDS: Mometasone/Formoterol 120 PUFF INHALER INH SCH ×2 (07:10→18:32)
[2018-12-11] MEDS ORDERED: predniSONE 5 MG TAB PO SCH (08:00)
[2018-12-11] MEDS: Magnesium Oxide 250 MG TAB PO SCH (08:25)
[2018-12-11] MEDS: metroNIDAZOLE 500 MG TAB PO SCH (08:26)
[2018-12-11] MEDS: Carvedilol 3.125 MG TAB PO SCH (08:26)
[2018-12-11] MEDS: Enoxaparin Sodium 40 MG/0.4 ML SYRINGE SC SCH (08:27)
[2018-12-11] MEDS: Pregabalin 75 MG CAP PO SCH (08:27)
[2018-12-11] MEDS: ALPRAZolam 0.25 MG TAB PO PRN (08:29)
[2018-12-11] MEDS: Sodium Chloride 0.9% 1,000 ML IV SCH ×2 (08:29→17:08)
[2018-12-11] MEDS ORDERED: Aspirin 81 mg Enteric Coated Tablet PO SCH (09:00)
[2018-12-11] MEDS ORDERED: Potassium [Potassium] 99 MG PO SCH (09:00)
[2018-12-11] MEDS ORDERED: Non-Formulary Item 1 EACH (Omeprazole [Omeprazole] 40 MG) PO SCH (09:00)
[2018-12-11] MEDS ORDERED: Docusate 100 MG CAP PO SCH (09:00)
[2018-12-11] MEDS ORDERED: Cyanocobalamin (Vitamin B-12) 1,000 MCG TAB PO SCH (09:00)
[2018-12-11] MEDS ORDERED: Ferrous Gluconate 324 MG TAB PO SCH (09:00)
[2018-12-11] MEDS ORDERED: Calcium Carbonate + Vit D 1 TAB PO SCH (09:00)
[2018-12-11 13:56] LABS: #Basophils 0.1 thou/uL (0.0-0.2); #Eosinphils 0.1 thou/uL (0.0-0.7); #Lymphocytes 0.5 thou/uL (1.20-3.40); #Monocytes 0.3 thou/uL (0.11-0.59); #Neutrophils 9.2 thou/uL (1.40-6.50); %Basophils 0.5 % (0.0-1.0); %Eosinophils 0.8 % (0.0-10.0); %Lymphocytes 4.6 % (21.0-51.0); %Monocytes 3.3 % (0.0-10.0); %Neutrophils 90.8 % (42.0-75.0); Hemoglobin 10.3 g/dL (12.0-16.0); Mean Corpuscular HGB CONC 31.4 g/dL (32.0-36.0); Mean Corpuscular Hemoglobin 31.4 pg (27.0-31.0); Mean Platelet Volume 8.8 fL (7.4-10.4); Platelet Count 171 thou/uL (130-400); RBC Distribution Width 12.2 % (11.5-14.5); Red Blood Cell (RBC) Count 3.29 mill/uL (4.20-5.40); White Blood Cell (WBC) Count 10.1 thou/uL (4.8-10.8)
[2018-12-11 14:29] LABS: Anion Gap 8 mmol/L (10-20); BUN (Urea Nitrogen) 5 mg/dL (9.8-20.1); Calc. Creatinine Clearance 78 mL/min (70-130); Calcium 5.8 mg/dL (7.8-10.44); Carbon Dioxide 17 mmol/L (23-31); Chloride 111 mmol/L (98-107); Estimated GFR-MDRD Greater than 90; Glucose 99 mg/dL (83-110); Potassium 2.9 mmol/L (3.5-5.1); Sodium 133 mmol/L (136-145)
[2018-12-11 15:43] VITALS: TEMP 97.5
[2018-12-11 16:18] VITALS: BP 152/77
[2018-12-11 17:05] LABS: ALT (SGPT) 19 U/L (8-55); AST (SGOT) 20 U/L (5-34); Albumin 3.3 g/dL (3.4-4.8); Alkaline Phosphatase 54 U/L (40-150); Anion Gap 11 mmol/L (10-20); BUN (Urea Nitrogen) 6 mg/dL (9.8-20.1); Bilirubin, Total 0.4 mg/dL (0.2-1.2); Calc. Creatinine Clearance 61 mL/min (70-130); Calcium 7.8 mg/dL (7.8-10.44); Carbon Dioxide 20 mmol/L (23-31); Chloride 103 mmol/L (98-107); Estimated GFR-MDRD Greater than 90; Globulin 2.4 g/dL (2.4-3.5); Glucose 87 mg/dL (83-110); Potassium 3.8 mmol/L (3.5-5.1); Protein, Total 5.7 g/dL (6.0-8.3); Sodium 130 mmol/L (136-145)
--- NOTE | 2018-12-12 10:28 | DIS ---
DATE OF ADMISSION: 12/10/2018 DATE OF DISCHARGE: 12/11/2018 PRIMARY CARE PROVIDER: Christina Gunn MD. DISCHARGE DIAGNOSES: 1. Hyponatremia. 2. Generalized weakness. 3. 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 CONDITION OF THE PATIENT ON THE DAY OF DISCHARGE: Stable. I assessed Ms. Carver prior to discharge. She denies any chest pain or shortness of breath. She ambulated in the hallways with a walker with physical therapy. PHYSICAL EXAMINATION: VITAL SIGNS: Stable. HEART: S1 and S2 are heard, regular. LUNGS: Clear to auscultation bilaterally. DISCHARGE MEDICATIONS: No change was made to her pre-admission home medications as dictated in history and physical note by Dr. Chandler on December 09, 2018. HOSPITAL COURSE: Ms. Carver is a pleasant 78-year-old lady, who was admitted to [facility] on 12/10/2018 for generalized weakness. She was found to be hyponatremic, most likely secondary to SIADH. She received intravenous fluids with improvement of her sodium level from 127 at the time of admission to 130 by December 11, 2018. She also improved clinically. She was seen by Physical Therapy Service prior to discharge. I have advised her to limit her oral fluid intake to less than 1800 mL per 24 hours and have her creatinine and electrolytes rechecked through her primary care provider's office. On day of the discharge, she has sodium 130, potassium 3.8, creatinine 0.56, calcium 7.8, white count 10,100, hemoglobin 10.3, and platelet count 171,000. Many thanks for allowing me to participate in your patient's care. Please feel free to contact me with any questions or concerns. DISCHARGE DESTINATION: Home. Total amount of time spent coordinating this discharge, 32 minutes. Job ID: [id number] MTDD
== END 2018-12-11 20:20 | disposition home or self-care (01) | DRG 641 ==
LOC: ERS 16:36 → 2NO 12-10 00:44
PROVIDERS: ADMIT Internal Medicine; ATTEND Internal Medicine
PROC: B51C1ZZ Fluoroscopy of Left Lower Extremity Veins using Low Osmolar Contrast (ICD-10-PCS; principal; 2018-12-10)
DX: E87.1 Hypo-osmolality and hyponatremia (principal); N39.0 Urinary tract infection, site not specified; J44.9 Chronic obstructive pulmonary disease, unspecified; I10 Essential (primary) hypertension; Z86.711 Personal history of pulmonary embolism; K21.9 Gastro-esophageal reflux disease without esophagitis
CPT/HCPCS: 36415; 36416; 71045; 80048; 80053; 81003; 83880; 83930; 83935; 84300; 84439; 84443; 85025; 93005; 93970; 94640; J1650; J7512; J7620

== ENCOUNTER 2018-12-17 13:27 | Outpatient (CLI) | payer MEDICARE ==
[~2018-12-17 13:27] MED LIST: Iopamidol 370 76% 100 ML VIAL ONE
--- NOTE | 2018-12-17 15:53 | CT ---
CT ABDOMEN AND PELVIS WITH AND WITHOUT CONTRAST: HISTORY: R31.0, gross hematuria. COMPARISON: CT abdomen and pelvis from 2017. FINDINGS: There is cystic bronchiectasis in the lower lobes. No pericardial effusion. There is a small bowel containing left-sided indirect inguinal hernia without proximal dilatation of bowel. On the noncontrast portion of the examination, there is no nephroureteral lithiasis or hydrou reteral nephrosis. No abnormal renal enhancing mass. No abnormal enhancing urothelial mass. No lisa ling defects in the urinary bladder. Mild prominence of both renal pelves. No ureteral dilatation. Extensive diverticula throughout the sigmoid colon without active recurrent inflammation. The liver, gallbladder, and spleen are all unremarkable. Mild pancreatic atrophy. Moderate osseous deminerali zation. Moderate levoscoliosis of the lumbar spine. There is sclerosis along what appear to be healing right-sided rib fractures. IMPRESSION: 1. No nephrouretal lithiasis or hydroureteral nephrosis. No secondary evidence of recently passed s tone. 2. No abnormal enhancing renal mass nor urothelial mass. 3. Cystic bronchiectasis in the lower lobes bilaterally. 4. Similar appearance of the patulous bilateral renal pelves without hydroureter. 5. Left-sided small bowel containing indirect inguinal hernia without evidence of obstruction. 6. Extensive diverticular disease without acute inflammatory changes. 7. Pelvic floor relaxation with thin attenuated levator ani muscles. POS: [facility]
== END 2018-12-17 13:28 | disposition home or self-care (01) ==
LOC: BICCT 13:27
PROVIDERS: ATTEND Urology
DX: R31.0 Gross hematuria (principal); K40.90 Unilateral inguinal hernia, without obstruction or gangrene, not specified as recurrent; K57.30 Diverticulosis of large intestine without perforation or abscess without bleeding; J47.9 Bronchiectasis, uncomplicated
CPT/HCPCS: 74178; Q9967

== ENCOUNTER 2019-01-09 12:17 | Emergency (ER) | payer MEDICARE ==
[~2019-01-09 12:17] MED LIST changes: +ISOVUE-370 76%-LOCM 1 ML ONE; -Iopamidol 370 76% 100 ML VIAL ONE
[2019-01-09 13:00] LABS: #Eosinphils 0.4 thou/uL (0.0-0.7); #Lymphocytes 0.5 thou/uL (1.20-3.40); #Monocytes 1.1 thou/uL (0.11-0.59); %Basophils 0.2 % (0.0-1.0); %Eosinophils 3.5 % (0.0-10.0); %Lymphocytes 5.3 % (21.0-51.0); %Monocytes 10.9 % (0.0-10.0); %Neutrophils 80.1 % (42.0-75.0); Hemoglobin 14.2 g/dL (12.0-16.0); Mean Corpuscular HGB CONC 32.8 g/dL (32.0-36.0); Mean Corpuscular Hemoglobin 31.3 pg (27.0-31.0); Mean Corpuscular Volume 95.5 fL (78.0-98.0); Mean Platelet Volume 9.6 fL (7.4-10.4); Platelet Count 137 thou/uL (130-400); RBC Distribution Width 12.3 % (11.5-14.5); Red Blood Cell (RBC) Count 4.52 mill/uL (4.20-5.40)
[2019-01-09 13:23] LABS: ALT (SGPT) 21 U/L (8-55); AST (SGOT) 16 U/L (5-34); Albumin 4.5 g/dL (3.4-4.8); Alkaline Phosphatase 55 U/L (40-150); Anion Gap 13 mmol/L (10-20); BUN (Urea Nitrogen) 13 mg/dL (9.8-20.1); Bilirubin, Total 0.9 mg/dL (0.2-1.2); CK (CPK) 30 U/L (29-168); Calc. Creatinine Clearance 0 mL/min (70-130); Calcium 9.9 mg/dL (7.8-10.44); Carbon Dioxide 26 mmol/L (23-31); Chloride 97 mmol/L (98-107); Estimated GFR-MDRD 79; Globulin 2.9 g/dL (2.4-3.5); Glucose 123 mg/dL (83-110); Lipase 23 U/L (8-78); Potassium 3.5 mmol/L (3.5-5.1); Protein, Total 7.4 g/dL (6.0-8.3); Sodium 132 mmol/L (136-145)
[2019-01-09 14:15] LABS: Bilirubin Negative (Negative); Blood, Urine Small (Negative); Clarity CLEAR (Clear); Glucose, Urine (Dipstick) Negative (Negative); Leukocyte Negative (Negative); Nitrite Negative (Negative); Protein, Urine (Dipstick) 30 mg/dL (Neg-Trace); Specific Gravity, Urine 1.011 (1.002-1.036)
[2019-01-09 14:17] LABS: Bacteria/HPF None Seen HPF (None Seen); Hyaline Casts/LPF 0-3 HYALINE CAST LPF (0-3 Hyaline); Squamous Epithelial 0-3 HPF (0-3)
--- NOTE | 2019-01-09 14:34 | CT ---
Exam: CT angiogram of the chest HISTORY: Tachypnea. Tachycardia. COMPARISON: 10/10/2018 TECHNIQUE: CT angiogram of the chest is performed in the axial plane. Three-dimensional reformatted i mages are submitted for interpretation FINDINGS: Mediastinum: No mass, lymphadenopathy or hematoma. HEART: Normal size. No significant pericardial fluid. Aorta: No aneurysm or dissection. Atherosclerotic changes noted. Upper solid abdominal viscera: No abnormality enhancement. Trachea and central bronchi: Patent Pleural spaces: No effusion Lung parenchyma: Extensive emphysematous changes. Evaluation of the lung parenchyma is limited by mot ion. Calcified granuloma in the left lower lobe. No suspicious masses or consolidation. Pneumothorax: None Osseous structures: No lytic or blastic lesions Pulmonary arteries: Adequate contrast opacification pulmonary arterial system to the level of segment al arteries. No filling defect to suggest pulmonary embolism IMPRESSION: 1. Extensive emphysematous changes in the lung parenchyma. 2. No evidence of pulmonary artery embolism to the level of segmental arteries.
== END 2019-01-09 16:00 | disposition home or self-care (01) ==
LOC: ERS 12:17
DX: E87.1 Hypo-osmolality and hyponatremia (principal); I10 Essential (primary) hypertension; J44.9 Chronic obstructive pulmonary disease, unspecified; F41.9 Anxiety disorder, unspecified; Z79.899 Other long term (current) drug therapy; Z79.891 Long term (current) use of opiate analgesic; Z79.1 Long term (current) use of non-steroidal anti-inflammatories (NSAID)
CPT/HCPCS: 36415; 71275; 80053; 81003; 81015; 82550; 83690; 83880; 84484; 85025; 93005; Q9966

== ENCOUNTER 2019-02-13 13:10 | Outpatient (CLI) | payer MEDICARE ==
--- NOTE | 2019-02-13 13:44 | RAD ---
EXAM: Chest 2 views: HISTORY: Dyspnea COMPARISON: 05/27/2018 FINDINGS: There is a normal-sized cardiomediastinal silhouette. Atherosclerotic calcifications are seen in the aorta. Increased interstitial markings are present. There is no evidence of consolidation, mass, or pleural effusion. Degenerative changes are seen in the spine. There appear to be remote right rib fractures. IMPRESSION: No evidence of acute cardiopulmonary disease
== END 2019-02-13 13:11 | disposition home or self-care (01) ==
LOC: RAD 13:10
PROVIDERS: ATTEND Internal Medicine Critical Care Medicine
DX: R06.00 Dyspnea, unspecified (principal)
CPT/HCPCS: 71046

== ENCOUNTER 2019-04-11 13:32 | Outpatient (CLI) | payer MEDICARE ==
--- NOTE | 2019-04-11 14:33 | MMO ---
Bilateral MAMMO Bilat Screen [facility]. CLINICAL HISTORY: Patient is 78 years old and is seen for screening. The patient has no family history of breast cancer. The patient has a history of malignant (generic) at age 62. The patient has a history of right Lumpectomy in November, - malignant. VIEWS: The views performed were: bilateral craniocaudal with tomosynthesis and bilateral mediolateral oblique with tomosynthesis. FILMS COMPARED: The present examination has been compared to prior imaging studies performed at [facility] on 03/05/2015, 03/08/2016, 04/05/2017 and 04/08/2018. MAMMOGRAM FINDINGS: There are scattered fibroglandular densities. Finding 1: There is an area of architectural distortion with associated post-surgical scar seen in the right breast. Finding 2: There are stable benign appearing calcifications seen in both breasts. There are also vascular calcifications. There are no suspicious masses, suspicious calcifications, or new areas of architectural distortion. IMPRESSION: THERE IS NO MAMMOGRAPHIC EVIDENCE OF MALIGNANCY. A ROUTINE FOLLOW-UP MAMMOGRAM IN 1 YEAR IS RECOMMENDED. THE RESULTS OF THIS EXAM WERE SENT TO THE PATIENT. ACR BI-RADS Category 2 - Benign finding MAMMOGRAPHY NOTE: 1. A negative mammogram report should not delay a biopsy if a dominant of clinically suspicious mass is present. 2. Approximately 10% to 15% of breast cancers are not detected by mammography. 3. Adenosis and dense breasts may obscure an underlying neoplasm. Reported by: ARNOL CHAKRABORTY MD Electonically Signed: [id number]
== END 2019-04-11 13:33 | disposition home or self-care (01) ==
LOC: BICMAMMO 13:32
PROVIDERS: ATTEND Internal Medicine
DX: Z12.31 Encounter for screening mammogram for malignant neoplasm of breast (principal); Z98.890 Other specified postprocedural states; Z85.3 Personal history of malignant neoplasm of breast
CPT/HCPCS: 77063; 77067

== ENCOUNTER 2019-07-21 12:45 | Outpatient (CLI) | payer MEDICARE ==
--- NOTE | 2019-07-21 13:16 | RAD ---
EXAM: Chest 2 views: HISTORY: Dyspnea COMPARISON: 02/13/2019 FINDINGS: Stable bony demineralization, healed rib fractures, hyperinflation, biapical pleural thickening, and scattered linear and interstitial increased markings in the bases. Stable vertical height loss of one of the lower thoracic vertebral bodies. Old granulomatous disease. Heart size:Within normal limits. Lungs:Clear of acute process. Atherosclerotic changes of the aorta. No confluent pneumonia, overt edema, pleural effusion, pneumothorax, or other significant acute proce ss. IMPRESSION: Stable chronic changes. Atherosclerosis of the aorta. No acute intrathoracic disease.
== END 2019-07-21 12:46 | disposition home or self-care (01) ==
LOC: RAD 12:45
PROVIDERS: ATTEND Internal Medicine Critical Care Medicine
DX: R06.00 Dyspnea, unspecified (principal)
CPT/HCPCS: 71046

== ENCOUNTER 2020-06-23 14:50 | Outpatient (CLI) | payer MEDICARE ==
--- NOTE | 2020-06-23 15:49 | MMO ---
Bilateral MAMMO Bilat Diag [facility]. CLINICAL HISTORY: Patient is 79 years old and is seen for diagnostic exam. The patient has no family history of breast cancer. The patient has a history of malignant (generic) in the right breast at age 62. The patient has a history of right Lumpectomy in November, - malignant. VIEWS: The views performed were: bilateral craniocaudal with tomosynthesis; bilateral mediolateral oblique with tomosynthesis; and bilateral mediolateral with tomosynthesis. FILMS COMPARED: The present examination has been compared to prior imaging studies performed at [facility] on 04/05/2017, 04/08/2018, 04/11/2019 and 06/23/2020. This study has been interpreted with the assistance of computer-aided detection. MAMMOGRAM FINDINGS: There are scattered fibroglandular densities. Finding 1: There are stable benign appearing calcifications seen in both breasts. Finding 2: No mammographic or ultrasound finding to account for the palpable finding in outer Rt breast. There are no suspicious masses, suspicious calcifications, or new areas of architectural distortion. IMPRESSION: THERE IS NO MAMMOGRAPHIC EVIDENCE OF MALIGNANCY. A ROUTINE FOLLOW-UP MAMMOGRAM IN 1 YEAR IS RECOMMENDED. THE RESULTS OF THIS EXAM WERE SENT TO THE PATIENT. ACR BI-RADS Category 2 - Benign finding MAMMOGRAPHY NOTE: 1. A negative mammogram report should not delay a biopsy if a dominant of clinically suspicious mass is present. 2. Approximately 10% to 15% of breast cancers are not detected by mammography. 3. Adenosis and dense breasts may obscure an underlying neoplasm. Reported by: JEMIMA HUI MD Electonically Signed: [id number]
--- NOTE | 2020-06-23 16:55 | ULT ---
RIGHT BREAST ULTRASOUND: Date: 06/23/2020 HISTORY: Patient presents with a palpable finding in the outer aspect of the right breast at approximately the 9 o'clock position. FINDINGS: Right breast is evaluated from the 6 o'clock to 9 o'clock regions. There is no evidence for solid or cystic mass. There was no mammographic abnormality noted in this region of the right breast. IMPRESSION: BI-RADS Category 2 - Benign findings. Continue annual follow-up mammograms. No mammographic or ultrasound abnormal finding noted in the region of palpable concern in the outer a spect of the right breast. POS: OFF
== END 2020-06-23 14:51 | disposition home or self-care (01) ==
LOC: BICMAMMO 14:50
PROVIDERS: ATTEND Internal Medicine
DX: N64.4 Mastodynia (principal)
CPT/HCPCS: 76642; 77066; G0279

== ENCOUNTER 2020-11-11 11:54 | Outpatient (CLI) | payer MEDICARE ==
--- NOTE | 2020-11-11 12:52 | RAD ---
EXAM: Two views chest PROVIDED CLINICAL HISTORY: Dyspnea. COMPARISON: 10/31/2018 FINDINGS: Cardiac silhouette and pulmonary vasculature are within normal limits. Increased interstitial opacit ies are again seen within the lungs bilaterally likely due to chronic interstitial fibrotic lung changes. Nodular density overlying left midlung zone is again seen likely due to calcified granuloma. No consolidation or pleural fluid is seen. Lungs remain hyperexpanded. Remote right-sided rib fractures are again seen. There is osteopenia. Left convex scoliosis thoracolumbar spine is seen. Vas cular calcifications are again seen in the thoracic aorta. IMPRESSION: Stable chronic lung changes without evidence of an acute cardiopulmonary process..
== END 2020-11-11 11:55 | disposition home or self-care (01) ==
LOC: BICRAD 11:54
PROVIDERS: ATTEND Internal Medicine Critical Care Medicine
DX: R06.00 Dyspnea, unspecified (principal)
CPT/HCPCS: 71046

== ENCOUNTER 2020-12-07 10:31 | Outpatient (CLI) | payer MEDICARE ==
[~2020-12-07 10:31] MED LIST changes: -ISOVUE-370 76%-LOCM 1 ML ONE; +Iopamidol-370 76% 500 ML 1 ML ONE
== END 2020-12-07 10:32 | disposition home or self-care (01) ==
LOC: BICCT 10:31
PROVIDERS: ATTEND Physician Assistant Medical
DX: R10.33 Periumbilical pain (principal); R00.0 Tachycardia, unspecified; R06.82 Tachypnea, not elsewhere classified; J44.9 Chronic obstructive pulmonary disease, unspecified; K57.30 Diverticulosis of large intestine without perforation or abscess without bleeding; K40.90 Unilateral inguinal hernia, without obstruction or gangrene, not specified as recurrent
CPT/HCPCS: 74177; 82565; Q9967

== ENCOUNTER 2020-12-09 10:02 | Inpatient (IN) | payer MEDICARE ==
[2020-12-09 11:27] LABS: #Lymphocytes 0.4 thou/uL (1.20-3.40); #Monocytes 0.6 thou/uL (0.11-0.59); #Neutrophils 6.4 thou/uL (1.40-6.50); %Basophils 0.2 % (0.0-1.0); %Eosinophils 0.3 % (0.0-10.0); %Lymphocytes 5.9 % (21.0-51.0); %Monocytes 7.6 % (0.0-10.0); %Neutrophils 86.1 % (42.0-75.0); Hemoglobin 13.6 g/dL (12.0-16.0); MDiff Complete? YES; Mean Corpuscular HGB CONC 32.9 g/dL (32.0-36.0); Mean Corpuscular Hemoglobin 29.3 pg (27.0-31.0); Mean Platelet Volume 10.9 fL (7.4-10.4); Ovalocytes SLIGHT = 2-5 cells (100X) (0-1/hpf); Platelet Count 104 thou/uL (130-400); Platelet Morphology Comment Appears Decreased; Polychromasia SLIGHT = 2-3 cells (100X) (0-2/hpf); RBC Distribution Width 12.9 % (11.5-14.5); Red Blood Cell (RBC) Count 4.62 mill/uL (4.20-5.40); White Blood Cell (WBC) Count 7.4 thou/uL (4.8-10.8)
[2020-12-09 11:38] LABS: ALT (SGPT) 15 U/L (8-55); AST (SGOT) 22 U/L (5-34); Albumin 4.1 g/dL (3.4-4.8); Alkaline Phosphatase 51 U/L (40-110); Anion Gap 17 mmol/L (10-20); BUN (Urea Nitrogen) 12 mg/dL (9.8-20.1); Bilirubin, Total 0.7 mg/dL (0.2-1.2); CK (CPK) 69 U/L (29-168); Calc. Creatinine Clearance 0 mL/min (70-130); Calcium 9.2 mg/dL (7.8-10.44); Carbon Dioxide 25 mmol/L (23-31); Chloride 100 mmol/L (98-107); Globulin 2.4 g/dL (2.4-3.5); Glucose 156 mg/dL (83-110); Protein, Total 6.5 g/dL (5.8-8.1); Sodium 139 mmol/L (136-145)
[2020-12-09 11:42] LABS: Potassium 2.6 mmol/L (3.5-5.1)
[2020-12-09 12:00] LABS: CKMB 0.8 ng/mL (0-6.6)
[2020-12-09] MEDS ORDERED: NS 0.9% w/ 20 MEQ KCL 1,000 ML ONE ×2 (12:08→15:58)
[2020-12-09 12:10] LABS: Bilirubin Negative (Negative); Blood, Urine 1+ (Negative); Clarity Clear (Clear); Glucose, Urine (Dipstick) Normal (Negative); Ketone, Urine Trace mg/dL (Negative); Leukocyte Negative Leu/uL (Negative); Nitrite Negative (Negative); Protein, Urine (Dipstick) 100 mg/dL (Neg-Trace); Specific Gravity, Urine 1.012 (1.002-1.036); Squamous Epithelial None Seen HPF (0-3); Urobilinogen Normal mg/dL (Less than 2); pH, Urine 7.5 (5.0-9.0)
[2020-12-09 12:12] LABS: Bacteria/HPF 1+ HPF (None Seen)
[2020-12-09] MEDS ORDERED: NS 0.9% w/ 20 MEQ KCL 1,000 ML IV SCH (12:15)
[2020-12-09 14:52] LABS: Troponin I 0.064 ng/mL (< 0.028)
[2020-12-09] MEDS ORDERED: Ondansetron ODT 4 MG TAB PO PRN (16:53)
[2020-12-09] MEDS ORDERED: Bisacodyl 5 MG TAB PO PRN (16:53)
[2020-12-09] MEDS ORDERED: Senokot S 8.6-50 MG TAB PO PRN (16:53)
[2020-12-09] MEDS ORDERED: Ondansetron PF 4 MG/2 ML Vial IVP PRN (16:53)
[2020-12-09] MEDS ORDERED: Potassium Bicarbonate/Cit Ac 20 MEQ TAB PO SCH (17:15)
[2020-12-09] MEDS ORDERED: Calcium Carbonate 500 MG ChewTAB PO PRN (18:46)
[2020-12-09] MEDS: Sodium Chloride 0.9% 1,000 ML IV SCH (19:47)
[2020-12-09] MEDS: Pramipexole Di-HCl 0.25 MG TAB PO SCH (20:17)
[2020-12-09] MEDS: Atorvastatin Calcium 10 MG TAB PO SCH (20:18)
[2020-12-09 22:39] LABS: SARS-CoV-2 PCR by NAA Not Detected (NotDetected)
[2020-12-10 05:18] LABS: #Eosinphils 0.2 thou/uL (0.0-0.7); #Lymphocytes 0.5 thou/uL (1.20-3.40); #Monocytes 0.4 thou/uL (0.11-0.59); %Basophils 0.4 % (0.0-1.0); %Eosinophils 4.3 % (0.0-10.0); %Lymphocytes 10.1 % (21.0-51.0); %Monocytes 8.4 % (0.0-10.0); %Neutrophils 76.8 % (42.0-75.0); Hemoglobin 11.9 g/dL (12.0-16.0); Mean Corpuscular HGB CONC 32.3 g/dL (32.0-36.0); Mean Corpuscular Hemoglobin 29.3 pg (27.0-31.0); Mean Corpuscular Volume 90.8 fL (78.0-98.0); Mean Platelet Volume 11.3 fL (7.4-10.4); Platelet Count 84 thou/uL (130-400); RBC Distribution Width 12.8 % (11.5-14.5); Red Blood Cell (RBC) Count 4.07 mill/uL (4.20-5.40); White Blood Cell (WBC) Count 5.2 thou/uL (4.8-10.8)
[2020-12-10 06:22] LABS: Anion Gap 13 mmol/L (10-20); BUN (Urea Nitrogen) 12 mg/dL (9.8-20.1); Calc. Creatinine Clearance 41 mL/min (70-130); Calcium 7.6 mg/dL (7.8-10.44); Carbon Dioxide 21 mmol/L (23-31); Chloride 105 mmol/L (98-107); Glucose 85 mg/dL (83-110); Sodium 136 mmol/L (136-145)
[2020-12-10] MEDS: HYDROcodone/Acetaminophen 5/325 mg Tablet PO PRN (07:38)
[2020-12-10] MEDS: Sodium Chloride 0.9% 1,000 ML IV SCH ×2 (07:39→13:39)
[2020-12-10] MEDS ORDERED: Enoxaparin Sodium 40 MG/0.4 ML SYRINGE SC SCH (09:00)
[2020-12-10] MEDS: predniSONE 5 MG TAB PO SCH (09:05)
[2020-12-10] MEDS: Losartan 25 MG TAB PO SCH (09:05)
[2020-12-10 09:58] LABS: Magnesium 1.6 mg/dL (1.6-2.6)
[2020-12-10] MEDS: Potassium Chloride 20 MEQ TAB PO SCH ×2 (10:15→13:37)
[2020-12-10] MEDS ORDERED: K-Phos Neutral 250 MG TAB PO SCH (12:15)
[2020-12-10] MEDS: K-Phos Neutral 250 MG TAB PO SCH (18:28)
[2020-12-10] MEDS: Pramipexole Di-HCl 0.25 MG TAB PO SCH (20:50)
[2020-12-10] MEDS: Senokot S 8.6-50 MG TAB PO SCH (20:50)
[2020-12-10] MEDS: Atorvastatin Calcium 10 MG TAB PO SCH (20:50)
[2020-12-10] MEDS: ALPRAZolam 0.25 MG TAB PO PRN (21:49)
[2020-12-11] MEDS: Sodium Chloride 0.9% 1,000 ML IV SCH (02:25)
[2020-12-11 05:23] LABS: #Eosinphils 0.2 thou/uL (0.0-0.7); #Lymphocytes 0.6 thou/uL (1.20-3.40); #Monocytes 0.6 thou/uL (0.11-0.59); #Neutrophils 3.3 thou/uL (1.40-6.50); %Eosinophils 5.3 % (0.0-10.0); %Lymphocytes 11.7 % (21.0-51.0); %Monocytes 12.4 % (0.0-10.0); %Neutrophils 70.7 % (42.0-75.0); Hemoglobin 8.1 g/dL (12.0-16.0); Mean Corpuscular HGB CONC 33.6 g/dL (32.0-36.0); Mean Corpuscular Hemoglobin 30.8 pg (27.0-31.0); Mean Corpuscular Volume 91.6 fL (78.0-98.0); Mean Platelet Volume 10.5 fL (7.4-10.4); Platelet Count 54 thou/uL (130-400); RBC Distribution Width 12.7 % (11.5-14.5); Red Blood Cell (RBC) Count 2.64 mill/uL (4.20-5.40); White Blood Cell (WBC) Count 4.7 thou/uL (4.8-10.8)
[2020-12-11 08:32] LABS: Reticulocyte Count 1.9 % (0.5-1.5)
[2020-12-11 08:35] LABS: INR-International Normal Ratio 1.1; PTT 32.2 sec (22.9-36.1); Prothrombin Time 14.8 sec (12.0-14.7)
[2020-12-11] MEDS: predniSONE 5 MG TAB PO SCH (08:43)
[2020-12-11] MEDS: Senokot S 8.6-50 MG TAB PO SCH ×2 (08:43→21:43)
[2020-12-11] MEDS: K-Phos Neutral 250 MG TAB PO SCH ×3 (08:43→17:36)
[2020-12-11] MEDS: Losartan 25 MG TAB PO SCH (08:43)
[2020-12-11 08:53] LABS: ALT (SGPT) 16 U/L (8-55); AST (SGOT) 27 U/L (5-34); Albumin 3.2 g/dL (3.4-4.8); Alkaline Phosphatase 38 U/L (40-110); Bilirubin, Direct 0.2 mg/dL (0.1-0.3); Bilirubin, Total 0.3 mg/dL (0.2-1.2); Iron 22 ug/dL (50-170); Iron Binding Capacity, Total 258 mcg/dL (265-497); Protein, Total 5.5 g/dL (5.8-8.1)
[2020-12-11 09:24] LABS: Chloride 110 mmol/L (98-107); Potassium 3.6 mmol/L (3.5-5.1); Sodium 141 mmol/L (136-145)
[2020-12-11 09:26] LABS: Glucose 78 mg/dL (83-110)
[2020-12-11 09:27] LABS: Anion Gap 13 mmol/L (10-20); Carbon Dioxide 22 mmol/L (23-31)
[2020-12-11 09:29] LABS: Calc. Creatinine Clearance 48 mL/min (70-130)
[2020-12-11 09:30] LABS: BUN (Urea Nitrogen) 11 mg/dL (9.8-20.1)
[2020-12-11 10:07] LABS: Magnesium 1.6 mg/dL (1.6-2.6)
[2020-12-11 10:14] LABS: Phosphorus 1.8 mg/dL (2.3-4.7)
[2020-12-11] MEDS ORDERED: Carvedilol 3.125 MG TAB PO SCH (10:15)
[2020-12-11 15:32] LABS: Hemoglobin 12.2 g/dL (12.0-16.0); Platelet Count 95 thou/uL (130-400)
[2020-12-11] MEDS: Budesonide 0.5 MG/2 ML NEB NEB SCH (19:15)
[2020-12-11] MEDS ORDERED: Pramipexole Di-HCl 0.25 MG TAB PO SCH (21:00)
[2020-12-11] MEDS: ALPRAZolam 0.25 MG TAB PO PRN (21:42)
[2020-12-11] MEDS: Atorvastatin Calcium 10 MG TAB PO SCH (21:42)
[2020-12-11] MEDS: Pramipexole Di-HCl 0.25 MG TAB PO SCH (21:42)
[2020-12-11] MEDS: Carvedilol 3.125 MG TAB PO SCH (21:43)
[2020-12-12 05:28] LABS: #Eosinphils 0.3 thou/uL (0.0-0.7); #Lymphocytes 0.9 thou/uL (1.20-3.40); #Monocytes 0.8 thou/uL (0.11-0.59); #Neutrophils 4.6 thou/uL (1.40-6.50); %Basophils 0.2 % (0.0-1.0); %Eosinophils 5.1 % (0.0-10.0); %Lymphocytes 13.2 % (21.0-51.0); %Monocytes 11.4 % (0.0-10.0); %Neutrophils 70.1 % (42.0-75.0); Hemoglobin 11.8 g/dL (12.0-16.0); Mean Corpuscular HGB CONC 32.1 g/dL (32.0-36.0); Mean Corpuscular Hemoglobin 29.1 pg (27.0-31.0); Mean Corpuscular Volume 90.7 fL (78.0-98.0); Mean Platelet Volume 10.8 fL (7.4-10.4); Platelet Count 99 thou/uL (130-400); RBC Distribution Width 12.7 % (11.5-14.5); Red Blood Cell (RBC) Count 4.06 mill/uL (4.20-5.40); White Blood Cell (WBC) Count 6.6 thou/uL (4.8-10.8)
[2020-12-12 05:56] LABS: Anion Gap 13 mmol/L (10-20); BUN (Urea Nitrogen) 9 mg/dL (9.8-20.1); Calc. Creatinine Clearance 52 mL/min (70-130); Carbon Dioxide 25 mmol/L (23-31); Chloride 106 mmol/L (98-107); Glucose 78 mg/dL (83-110); Magnesium 1.5 mg/dL (1.6-2.6); Potassium 3.1 mmol/L (3.5-5.1); Sodium 141 mmol/L (136-145)
[2020-12-12] MEDS: Budesonide 0.5 MG/2 ML NEB NEB SCH ×2 (07:28→18:45)
[2020-12-12] MEDS ORDERED: Magnesium Sulfate 4 GM in Sodium Chloride 0.9% 250 ML 250 ML IVPB SCH (07:45)
[2020-12-12] MEDS ORDERED: Potassium Phosphate 30 MMOL, Magnesium Sulfate 4 GM in Sodium Chloride 0.9% 250 ML 250 ML IVPB SCH (07:45)
[2020-12-12] MEDS: K-Phos Neutral 250 MG TAB PO SCH ×3 (09:09→17:40)
[2020-12-12] MEDS: Cyanocobalamin (Vitamin B-12) 1,000 MCG TAB PO SCH (09:10)
[2020-12-12] MEDS: Multivit, Therapeutic 1 TAB PO SCH (09:11)
[2020-12-12] MEDS: Folic Acid 1 MG TAB PO SCH (09:11)
[2020-12-12] MEDS: Losartan 25 MG TAB PO SCH (09:12)
[2020-12-12] MEDS: predniSONE 5 MG TAB PO SCH (09:12)
[2020-12-12] MEDS: Carvedilol 3.125 MG TAB PO SCH ×2 (09:12→21:18)
[2020-12-12] MEDS: Senokot S 8.6-50 MG TAB PO SCH ×2 (09:13→21:19)
[2020-12-12] MEDS: ALPRAZolam 0.25 MG TAB PO PRN ×2 (09:25→21:17)
[2020-12-12] MEDS: HYDROcodone/Acetaminophen 5/325 mg Tablet PO PRN (21:17)
[2020-12-12] MEDS: Pramipexole Di-HCl 0.25 MG TAB PO SCH (21:18)
[2020-12-12] MEDS: Atorvastatin Calcium 10 MG TAB PO SCH (21:18)
[2020-12-13] MEDS: Budesonide 0.5 MG/2 ML NEB NEB SCH ×2 (06:52→18:40)
[2020-12-13] MEDS: Losartan 25 MG TAB PO SCH (09:39)
[2020-12-13] MEDS: K-Phos Neutral 250 MG TAB PO SCH ×2 (09:40→11:50)
[2020-12-13] MEDS: Cyanocobalamin (Vitamin B-12) 1,000 MCG TAB PO SCH (09:40)
[2020-12-13] MEDS: Multivit, Therapeutic 1 TAB PO SCH (09:40)
[2020-12-13] MEDS: predniSONE 5 MG TAB PO SCH (09:40)
[2020-12-13] MEDS: Folic Acid 1 MG TAB PO SCH (09:40)
[2020-12-13] MEDS: Carvedilol 3.125 MG TAB PO SCH ×2 (09:40→21:25)
[2020-12-13] MEDS: Senokot S 8.6-50 MG TAB PO SCH ×2 (09:41→21:26)
[2020-12-13 10:26] LABS: Albumin 3.3 g/dL (3.4-4.8); Anion Gap 10 mmol/L (10-20); BUN (Urea Nitrogen) 8 mg/dL (9.8-20.1); BUN/Creatinine Ratio 10.39; Calc. Creatinine Clearance 48 mL/min (70-130); Calcium 6.7 mg/dL (7.8-10.44); Carbon Dioxide 30 mmol/L (23-31); Chloride 101 mmol/L (98-107); Glucose 106 mg/dL (83-110); Magnesium 2.2 mg/dL (1.6-2.6); Phosphorus 2.6 mg/dL (2.3-4.7); Potassium 3.5 mmol/L (3.5-5.1); Sodium 137 mmol/L (136-145)
[2020-12-13] MEDS ORDERED: K-Phos Neutral 250 MG TAB PO SCH (12:00)
[2020-12-13] MEDS ORDERED: Hydrocodone-Acetamin 15 ML UDCUP PO PRN (13:35)
[2020-12-13 15:20] VITALS: BMI 22.9
[2020-12-13] MEDS: ALPRAZolam 0.25 MG TAB PO PRN (18:47)
[2020-12-13] MEDS: Pramipexole Di-HCl 0.25 MG TAB PO SCH (21:25)
[2020-12-13] MEDS: Atorvastatin Calcium 10 MG TAB PO SCH (21:25)
[2020-12-13] MEDS: Pantoprazole 40 MG GRANULES PACKET PO SCH (21:25)
[2020-12-14 04:30] LABS: #Eosinphils 0.3 thou/uL (0.0-0.7); #Lymphocytes 1.7 thou/uL (1.20-3.40); #Neutrophils 4.6 thou/uL (1.40-6.50); %Basophils 0.4 % (0.0-1.0); %Eosinophils 4.1 % (0.0-10.0); %Lymphocytes 22.1 % (21.0-51.0); %Monocytes 13.3 % (0.0-10.0); Hemoglobin 12.3 g/dL (12.0-16.0); Mean Corpuscular HGB CONC 32.6 g/dL (32.0-36.0); Mean Corpuscular Hemoglobin 29.5 pg (27.0-31.0); Mean Corpuscular Volume 90.4 fL (78.0-98.0); Mean Platelet Volume 10.7 fL (7.4-10.4); Platelet Count 120 thou/uL (130-400); RBC Distribution Width 12.7 % (11.5-14.5); Red Blood Cell (RBC) Count 4.17 mill/uL (4.20-5.40); White Blood Cell (WBC) Count 7.6 thou/uL (4.8-10.8)
[2020-12-14 04:48] LABS: Albumin 3.2 g/dL (3.4-4.8); Anion Gap 10 mmol/L (10-20); BUN (Urea Nitrogen) 7 mg/dL (9.8-20.1); BUN/Creatinine Ratio 9.09; Calc. Creatinine Clearance 48 mL/min (70-130); Calcium 6.9 mg/dL (7.8-10.44); Carbon Dioxide 31 mmol/L (23-31); Chloride 102 mmol/L (98-107); Glucose 85 mg/dL (83-110); Magnesium 1.9 mg/dL (1.6-2.6); Phosphorus 2.8 mg/dL (2.3-4.7); Potassium 3.4 mmol/L (3.5-5.1); Sodium 140 mmol/L (136-145)
[2020-12-14] MEDS: Budesonide 0.5 MG/2 ML NEB NEB SCH ×2 (07:42→18:58)
[2020-12-14] MEDS ORDERED: Multivits W-Minerals Liquid 15 ML LIQ PO SCH (09:00)
[2020-12-14] MEDS ORDERED: Magnesium 2 GM/50 ML 2 GM in Premix Bag 1 BAG IVPB SCH (09:15)
[2020-12-14] MEDS ORDERED: Potassium Chloride 20 MEQ/100 ML PREMIX BAG IVPB SCH (09:15)
[2020-12-14] MEDS: Losartan 25 MG TAB PO SCH (10:06)
[2020-12-14] MEDS: predniSONE 5 MG TAB PO SCH (10:07)
[2020-12-14] MEDS: Carvedilol 3.125 MG TAB PO SCH ×2 (10:07→20:45)
[2020-12-14] MEDS: Folic Acid 1 MG TAB PO SCH (10:07)
[2020-12-14] MEDS: Cyanocobalamin (Vitamin B-12) 1,000 MCG TAB PO SCH (10:08)
[2020-12-14] MEDS: Pantoprazole 40 MG GRANULES PACKET PO SCH ×2 (10:08→20:46)
[2020-12-14] MEDS: Senokot S 8.6-50 MG TAB PO SCH ×2 (10:08→20:45)
[2020-12-14] MEDS ORDERED: Potassium Bicarbonate/Cit Ac 20 MEQ TAB PO SCH (15:00)
[2020-12-14] MEDS: Atorvastatin Calcium 10 MG TAB PO SCH (20:45)
[2020-12-14] MEDS: ALPRAZolam 0.25 MG TAB PO PRN (20:46)
[2020-12-14] MEDS: Pramipexole Di-HCl 0.25 MG TAB PO SCH (20:46)
[2020-12-15 05:15] LABS: Albumin 3.3 g/dL (3.4-4.8); Anion Gap 9 mmol/L (10-20); BUN (Urea Nitrogen) 7 mg/dL (9.8-20.1); Calc. Creatinine Clearance 54 mL/min (70-130); Carbon Dioxide 30 mmol/L (23-31); Chloride 102 mmol/L (98-107); Glucose 88 mg/dL (83-110); Phosphorus 1.8 mg/dL (2.3-4.7); Potassium 3.3 mmol/L (3.5-5.1); Sodium 138 mmol/L (136-145)
[2020-12-15 05:41] LABS: #Eosinphils 0.2 thou/uL (0.0-0.7); #Lymphocytes 1.6 thou/uL (1.20-3.40); #Monocytes 0.8 thou/uL (0.11-0.59); #Neutrophils 5.5 thou/uL (1.40-6.50); %Basophils 0.5 % (0.0-1.0); %Eosinophils 2.9 % (0.0-10.0); %Lymphocytes 19.8 % (21.0-51.0); %Monocytes 10.2 % (0.0-10.0); %Neutrophils 66.6 % (42.0-75.0); Hemoglobin 12.4 g/dL (12.0-16.0); Mean Corpuscular HGB CONC 32.9 g/dL (32.0-36.0); Mean Corpuscular Hemoglobin 29.6 pg (27.0-31.0); Mean Corpuscular Volume 89.9 fL (78.0-98.0); Mean Platelet Volume 10.8 fL (7.4-10.4); Platelet Count 126 thou/uL (130-400); Platelet Morphology Comment Appears Adequate; RBC Distribution Width 12.7 % (11.5-14.5); Red Blood Cell (RBC) Count 4.19 mill/uL (4.20-5.40); White Blood Cell (WBC) Count 8.2 thou/uL (4.8-10.8)
[2020-12-15] MEDS ORDERED: Electrolyte Replacement Protocol 1 EACH FS PRN (05:58)
[2020-12-15] MEDS ORDERED: Potassium Chloride 20 MEQ TAB PO SCH (06:00)
[2020-12-15] MEDS: PHOS-NAK 1 PKT PACK PO SCH ×2 (06:17→11:20)
[2020-12-15] MEDS ORDERED: Magnesium 2 GM/50 ML 2 GM in Premix Bag 1 BAG IVPB SCH (06:30)
[2020-12-15] MEDS: Budesonide 0.5 MG/2 ML NEB NEB SCH ×2 (07:34→18:35)
[2020-12-15] MEDS: Cyanocobalamin (Vitamin B-12) 1,000 MCG TAB PO SCH (08:41)
[2020-12-15] MEDS: Multivitamin W/ Minerals 1 TAB PO SCH (08:42)
[2020-12-15] MEDS: Losartan 25 MG TAB PO SCH (08:42)
[2020-12-15] MEDS: predniSONE 5 MG TAB PO SCH (08:44)
[2020-12-15] MEDS: Folic Acid 1 MG TAB PO SCH (08:44)
[2020-12-15] MEDS: Carvedilol 3.125 MG TAB PO SCH ×2 (08:44→19:47)
[2020-12-15] MEDS: Senokot S 8.6-50 MG TAB PO SCH ×3 (08:44→19:47)
[2020-12-15] MEDS: Pantoprazole 40 MG GRANULES PACKET PO SCH ×2 (08:45→19:47)
[2020-12-15] MEDS: Pramipexole Di-HCl 0.25 MG TAB PO SCH (19:47)
[2020-12-15] MEDS: ALPRAZolam 0.25 MG TAB PO PRN (19:47)
[2020-12-15] MEDS: Atorvastatin Calcium 10 MG TAB PO SCH (19:47)
[2020-12-16] MEDS: Budesonide 0.5 MG/2 ML NEB NEB SCH (06:44)
[2020-12-16] MEDS: Senokot S 8.6-50 MG TAB PO SCH (09:33)
[2020-12-16] MEDS: Folic Acid 1 MG TAB PO SCH (09:34)
[2020-12-16] MEDS: predniSONE 5 MG TAB PO SCH (09:34)
[2020-12-16] MEDS: Losartan 25 MG TAB PO SCH (09:34)
[2020-12-16] MEDS: Pantoprazole 40 MG GRANULES PACKET PO SCH (09:34)
[2020-12-16] MEDS: Multivitamin W/ Minerals 1 TAB PO SCH (09:34)
[2020-12-16] MEDS: Carvedilol 3.125 MG TAB PO SCH (09:34)
[2020-12-16] MEDS: Cyanocobalamin (Vitamin B-12) 1,000 MCG TAB PO SCH (09:34)
[2020-12-16] MEDS ORDERED: Sodium Chloride 0.65% Nasal 44 ML BOT EA NARE PRN (11:56)
[2020-12-16] MEDS: ALPRAZolam 0.25 MG TAB PO PRN (12:01)
[2020-12-16 15:47] VITALS: BP 167/82; TEMP 98.9
== END 2020-12-16 15:45 | DRG 683 ==
LOC: ERS 10:02 → UNDOADMOB 13:26 → ERHOLD 13:26 → OBSVTOIN 13:26 → INTOOBSV 13:26 → ERHOLD 18:22 → 2NO 18:22 → OBSVTOIN 12-11 13:01 → UNDODISIN 12-16 15:45
PROVIDERS: ADMIT Internal Medicine; ATTEND Internal Medicine
DX: N17.9 Acute kidney failure, unspecified (principal); J96.11 Chronic respiratory failure with hypoxia; Z66 Do not resuscitate; Z20.822 Contact with and (suspected) exposure to COVID-19; E44.0 Moderate protein-calorie malnutrition; D61.818 Other pancytopenia; I47.1 Supraventricular tachycardia; E86.0 Dehydration; Z28.21 Immunization not carried out because of patient refusal; J44.9 Chronic obstructive pulmonary disease, unspecified; I10 Essential (primary) hypertension; K59.00 Constipation, unspecified; E87.6 Hypokalemia; E78.5 Hyperlipidemia, unspecified; K21.9 Gastro-esophageal reflux disease without esophagitis; E78.00 Pure hypercholesterolemia, unspecified; F41.9 Anxiety disorder, unspecified; G62.9 Polyneuropathy, unspecified; R50.83 Postvaccination fever; T50.Z95A Adverse effect of other vaccines and biological substances, initial encounter; S40.012A Contusion of left shoulder, initial encounter; W06.XXXA Fall from bed, initial encounter; R77.8 Other specified abnormalities of plasma proteins; K22.2 Esophageal obstruction; Z87.891 Personal history of nicotine dependence; Z88.8 Allergy status to other drugs, medicaments and biological substances; Z79.899 Other long term (current) drug therapy; Z79.51 Long term (current) use of inhaled steroids; Z79.82 Long term (current) use of aspirin; Z68.23 Body mass index [BMI] 23.0-23.9, adult; Z99.81 Dependence on supplemental oxygen; Z85.3 Personal history of malignant neoplasm of breast; Z79.52 Long term (current) use of systemic steroids; Z82.49 Family history of ischemic heart disease and other diseases of the circulatory system
CPT/HCPCS: 36415; 51701; 70450; 71045; 72125; 80048; 80053; 80069; 80076; 81003; 81015; 82274; 82550; 82553; 82728; 83540; 83550; 83605; 83735; 84100; 84484; 85025; 85046; 85610; 85730; 86850; 86900; 86901; 87040; 87086; 87635; 93005; 93306; 94640; 96365; 96366; 96372; 96375; G0378; J1650; J2405; J3475; J3480; J7050; J7512; J7620; J7626; Q0162; U0003; U0005

== ENCOUNTER 2022-01-16 09:12 | Inpatient (IN) | payer MEDICARE ==
[2022-01-16] MEDS ORDERED: Iopamidol-370 76% 500 ML 1 ML ONE (09:18)
[2022-01-16 10:06] LABS: Hemoglobin 12.4 g/dL (12.0-16.0); Mean Corpuscular HGB CONC 33.5 g/dL (32.0-36.0); Mean Corpuscular Hemoglobin 30.9 pg (27.0-31.0); Mean Platelet Volume 9.6 fL (7.4-10.4); Platelet Count 166 thou/uL (130-400); RBC Distribution Width 13.3 % (11.5-14.5); Red Blood Cell (RBC) Count 4.03 mill/uL (4.20-5.40); White Blood Cell (WBC) Count 16.1 thou/uL (4.8-10.8)
[2022-01-16 10:29] LABS: ALT (SGPT) 15 U/L (8-55); AST (SGOT) 21 U/L (5-34); Albumin 3.9 g/dL (3.4-4.8); Alkaline Phosphatase 83 U/L (40-110); Anion Gap 14 mmol/L (10-20); BUN (Urea Nitrogen) 10 mg/dL (9.8-20.1); Calc. Creatinine Clearance 0 mL/min (70-130); Calcium 9.4 mg/dL (7.8-10.44); Carbon Dioxide 22 mmol/L (23-31); Chloride 95 mmol/L (98-107); Globulin 2.8 g/dL (2.4-3.5); Glucose 155 mg/dL (83-110); Lipase 22 U/L (8-78); Potassium 3.4 mmol/L (3.5-5.1); Protein, Total 6.7 g/dL (5.8-8.1); Sodium 128 mmol/L (136-145)
[2022-01-16 10:41] LABS: MDiff Complete? YES
[2022-01-16 10:43] LABS: Band 13 % (5-11); Lymphocytes 7 % (21-51); Monocytes 4 % (0-10); Neutrophil 76 % (42-75)
[2022-01-16 10:44] LABS: Polychromasia SLIGHT = 2-3 cells (100X) (0-2/hpf)
[2022-01-16 11:42] LABS: Bilirubin Negative (Negative); Blood, Urine Trace (Negative); Clarity Clear (Clear); Glucose, Urine (Dipstick) Normal (Negative); Ketone, Urine Trace mg/dL (Negative); Leukocyte 75 Leu/uL (Negative); Nitrite Negative (Negative); Protein, Urine (Dipstick) 10 mg/dL (Neg-Trace); Urobilinogen Normal mg/dL (Less than 2)
[2022-01-16 11:43] LABS: Bacteria/HPF None Seen HPF (None Seen); Squamous Epithelial None Seen HPF (0-3)
[2022-01-16 11:45] LABS: Specific Gravity, Urine 1.044 (1.002-1.036)
[2022-01-16] MEDS ORDERED: cefTRIAXone\\ROCEPHIN 2 GM VIAL ONE (12:43)
[2022-01-16] MEDS ORDERED: Magnesium Citrate 300 ML BOT ONE (12:46)
[2022-01-16 14:43] VITALS: BMI 18.3
[2022-01-16] MEDS ORDERED: Lactated Ringer's 1,000 ML IV SCH (14:45)
[2022-01-16] MEDS ORDERED: Polyethylene Glycol 3350 17 GM Packet PO SCH (14:45)
[2022-01-16] MEDS ORDERED: Calcium Carbonate 500 MG ChewTAB PO PRN (14:58)
[2022-01-16] MEDS ORDERED: Albuterol Sulfate 2.5 mg/3 ml Neb NEB PRN (14:58)
[2022-01-16] MEDS ORDERED: ALPRAZolam 0.25 MG TAB PO PRN (14:58)
[2022-01-16] MEDS ORDERED: Potassium Chloride 20 MEQ TAB PO SCH (15:00)
[2022-01-16] MEDS ORDERED: Piperacillin/Tazobactam 3.375 GM in Sodium Chloride 0.9% 100 ML IVPB SCH ×2 (15:00→18:00)
[2022-01-16 16:28] LABS: Magnesium 1.3 mg/dL (1.6-2.6)
[2022-01-16] MEDS: Lactated Ringer's 1,000 ML IV SCH (16:54)
[2022-01-16] MEDS: Glycerin Adult Supp. (24 ct jar) PR SCH ×2 (17:15→17:27)
[2022-01-16] MEDS: Budesonide 0.5 MG/2 ML NEB NEB SCH (18:38)
[2022-01-16] MEDS: Piperacillin/Tazobactam 3.375 GM in Sodium Chloride 0.9% 100 ML IVPB SCH (21:43)
[2022-01-16] MEDS: Acetaminophen 650 MG/20.3 ML UDCUP PO PRN (21:43)
[2022-01-16] MEDS: Metoprolol Tartrate 25 MG TAB PO SCH (21:45)
[2022-01-16] MEDS: Apixaban 2.5 MG TAB PO SCH (21:45)
[2022-01-16 23:09] LABS: SARS-CoV-2 PCR by NAA Not Detected (NotDetected)
[2022-01-17] MEDS: Lactated Ringer's 1,000 ML IV SCH ×2 (04:00→10:39)
[2022-01-17] MEDS: Piperacillin/Tazobactam 3.375 GM in Sodium Chloride 0.9% 100 ML IVPB SCH ×3 (05:23→20:28)
[2022-01-17 06:37] LABS: #Eosinphils 0.1 thou/uL (0.0-0.7); #Lymphocytes 0.6 thou/uL (1.20-3.40); #Monocytes 0.9 thou/uL (0.11-0.59); #Neutrophils 10.7 thou/uL (1.40-6.50); %Basophils 0.1 % (0.0-1.0); %Eosinophils 0.5 % (0.0-10.0); %Lymphocytes 4.5 % (21.0-51.0); %Monocytes 7.4 % (0.0-10.0); %Neutrophils 87.5 % (42.0-75.0); Hemoglobin 10.2 g/dL (12.0-16.0); Mean Corpuscular HGB CONC 32.9 g/dL (32.0-36.0); Mean Corpuscular Hemoglobin 30.8 pg (27.0-31.0); Mean Corpuscular Volume 93.5 fL (78.0-98.0); Mean Platelet Volume 9.6 fL (7.4-10.4); Platelet Count 149 thou/uL (130-400); RBC Distribution Width 12.7 % (11.5-14.5); Red Blood Cell (RBC) Count 3.32 mill/uL (4.20-5.40); White Blood Cell (WBC) Count 12.3 thou/uL (4.8-10.8)
[2022-01-17 06:54] LABS: Anion Gap 10 mmol/L (10-20); BUN (Urea Nitrogen) 12 mg/dL (9.8-20.1); Calc. Creatinine Clearance 48 mL/min (70-130); Calcium 8.3 mg/dL (7.8-10.44); Carbon Dioxide 23 mmol/L (23-31); Chloride 102 mmol/L (98-107); Glucose 91 mg/dL (83-110); Sodium 132 mmol/L (136-145)
[2022-01-17] MEDS: Budesonide 0.5 MG/2 ML NEB NEB SCH ×2 (06:57→18:41)
[2022-01-17 07:01] LABS: Potassium 2.9 mmol/L (3.5-5.1)
[2022-01-17] MEDS ORDERED: Potassium Chloride 20 MEQ TAB PO SCH (07:15)
[2022-01-17] MEDS ORDERED: Potassium Chloride 20 MEQ/100 ML PREMIX BAG IVPB SCH (07:30)
[2022-01-17] MEDS: Polyethylene Glycol 3350 17 GM Packet PO SCH (08:06)
[2022-01-17] MEDS: Pramipexole Di-HCl 0.25 MG TAB PO SCH (08:06)
[2022-01-17] MEDS: Multivitamin W/ Minerals 1 TAB PO SCH (08:12)
[2022-01-17] MEDS: Apixaban 2.5 MG TAB PO SCH ×2 (08:12→20:28)
[2022-01-17] MEDS: Aspirin 81 mg Enteric Coated Tablet PO SCH (08:13)
[2022-01-17] MEDS: Folic Acid 1 MG TAB PO SCH (08:13)
[2022-01-17] MEDS: Metoprolol Tartrate 25 MG TAB PO SCH ×2 (08:14→20:28)
[2022-01-17] MEDS: Amlodipine 5 MG TAB PO SCH (08:14)
[2022-01-17] MEDS ORDERED: Magnesium 2 GM/50 ML(in water) 2 GM in Premix Bag 1 BAG IVPB SCH (08:30)
[2022-01-17] MEDS ORDERED: Polyethylene Glycol 3350 17 GM Packet PO SCH (17:30)
[2022-01-17] MEDS: Atorvastatin Calcium 40 MG TAB PO SCH (20:28)
[2022-01-18] MEDS: Lactated Ringer's 1,000 ML IV SCH ×3 (00:46→17:30)
[2022-01-18] MEDS: Acetaminophen 650 MG/20.3 ML UDCUP PO PRN (03:40)
[2022-01-18] MEDS: Piperacillin/Tazobactam 3.375 GM in Sodium Chloride 0.9% 100 ML IVPB SCH ×3 (03:41→20:53)
[2022-01-18 06:04] LABS: #Eosinphils 0.3 thou/uL (0.0-0.7); #Lymphocytes 0.6 thou/uL (1.20-3.40); #Monocytes 0.7 thou/uL (0.11-0.59); %Basophils 0.4 % (0.0-1.0); %Eosinophils 3.4 % (0.0-10.0); %Lymphocytes 7.3 % (21.0-51.0); %Neutrophils 80.8 % (42.0-75.0); Hemoglobin 8.9 g/dL (12.0-16.0); Mean Corpuscular HGB CONC 31.8 g/dL (32.0-36.0); Mean Corpuscular Volume 94.1 fL (78.0-98.0); Mean Platelet Volume 9.8 fL (7.4-10.4); Platelet Count 160 thou/uL (130-400); RBC Distribution Width 12.7 % (11.5-14.5); Red Blood Cell (RBC) Count 2.98 mill/uL (4.20-5.40); White Blood Cell (WBC) Count 8.7 thou/uL (4.8-10.8)
[2022-01-18 06:22] LABS: Anion Gap 10 mmol/L (10-20); BUN (Urea Nitrogen) 11 mg/dL (9.8-20.1); Calc. Creatinine Clearance 52 mL/min (70-130); Calcium 8.1 mg/dL (7.8-10.44); Carbon Dioxide 22 mmol/L (23-31); Chloride 105 mmol/L (98-107); Glucose 84 mg/dL (83-110); Magnesium 2.1 mg/dL (1.6-2.6); Sodium 134 mmol/L (136-145)
[2022-01-18 06:26] LABS: Potassium 2.8 mmol/L (3.5-5.1)
[2022-01-18] MEDS ORDERED: Potassium Chloride 40 MEQ in Premix Bag 1 BAG IVPB SCH (06:45)
[2022-01-18] MEDS: Budesonide 0.5 MG/2 ML NEB NEB SCH ×2 (07:49→18:46)
[2022-01-18] MEDS ORDERED: Potassium Chloride 20 MEQ TAB PO SCH ×2 (08:00→12:00)
[2022-01-18] MEDS: Multivitamin W/ Minerals 1 TAB PO SCH (08:06)
[2022-01-18] MEDS: Pramipexole Di-HCl 0.25 MG TAB PO SCH (08:06)
[2022-01-18] MEDS: Aspirin 81 mg Enteric Coated Tablet PO SCH (08:06)
[2022-01-18] MEDS: Folic Acid 1 MG TAB PO SCH (08:06)
[2022-01-18] MEDS: Potassium Chloride 20 MEQ in Premix Bag 1 BAG IVPB SCH ×2 (08:07→11:20)
[2022-01-18] MEDS: Amlodipine 5 MG TAB PO SCH (08:09)
[2022-01-18] MEDS: Polyethylene Glycol 3350 17 GM Packet PO SCH (08:10)
[2022-01-18] MEDS: Apixaban 2.5 MG TAB PO SCH ×2 (08:23→20:49)
[2022-01-18] MEDS: Metoprolol Tartrate 25 MG TAB PO SCH ×2 (11:20→20:49)
[2022-01-18] MEDS ORDERED: Polyethylene Glycol 3350 17 GM Packet PO SCH (13:00)
[2022-01-18 18:11] LABS: Anion Gap 9 mmol/L (10-20); BUN (Urea Nitrogen) 8 mg/dL (9.8-20.1); Calc. Creatinine Clearance 50 mL/min (70-130); Calcium 8.1 mg/dL (7.8-10.44); Carbon Dioxide 21 mmol/L (23-31); Glucose 92 mg/dL (83-110); Magnesium 1.8 mg/dL (1.6-2.6)
[2022-01-18 19:46] LABS: Chloride 106 mmol/L (98-107); Potassium 4.1 mmol/L (3.5-5.1); Sodium 133 mmol/L (136-145)
[2022-01-18] MEDS: Atorvastatin Calcium 40 MG TAB PO SCH (20:50)
[2022-01-19] MEDS: Piperacillin/Tazobactam 3.375 GM in Sodium Chloride 0.9% 100 ML IVPB SCH (04:03)
[2022-01-19 06:12] LABS: #Eosinphils 0.3 thou/uL (0.0-0.7); #Lymphocytes 0.5 thou/uL (1.20-3.40); #Monocytes 0.7 thou/uL (0.11-0.59); #Neutrophils 6.3 thou/uL (1.40-6.50); %Basophils 0.4 % (0.0-1.0); %Eosinophils 3.3 % (0.0-10.0); %Lymphocytes 6.7 % (21.0-51.0); %Monocytes 8.3 % (0.0-10.0); %Neutrophils 81.2 % (42.0-75.0); Hemoglobin 10.3 g/dL (12.0-16.0); Mean Corpuscular HGB CONC 31.5 g/dL (32.0-36.0); Mean Corpuscular Hemoglobin 30.2 pg (27.0-31.0); Mean Corpuscular Volume 95.7 fL (78.0-98.0); Mean Platelet Volume 9.5 fL (7.4-10.4); Platelet Count 184 thou/uL (130-400); RBC Distribution Width 12.7 % (11.5-14.5); White Blood Cell (WBC) Count 7.8 thou/uL (4.8-10.8)
[2022-01-19 06:38] LABS: Anion Gap 11 mmol/L (10-20); BUN (Urea Nitrogen) 4 mg/dL (9.8-20.1); Calc. Creatinine Clearance 58 mL/min (70-130); Calcium 8.5 mg/dL (7.8-10.44); Carbon Dioxide 22 mmol/L (23-31); Chloride 104 mmol/L (98-107); Glucose 98 mg/dL (83-110); Magnesium 1.7 mg/dL (1.6-2.6); Potassium 3.9 mmol/L (3.5-5.1); Sodium 133 mmol/L (136-145)
[2022-01-19] MEDS: Budesonide 0.5 MG/2 ML NEB NEB SCH (07:45)
[2022-01-19] MEDS: Apixaban 2.5 MG TAB PO SCH (08:08)
[2022-01-19] MEDS: Folic Acid 1 MG TAB PO SCH (08:08)
[2022-01-19] MEDS: Amlodipine 5 MG TAB PO SCH (08:08)
[2022-01-19] MEDS: Metoprolol Tartrate 25 MG TAB PO SCH (08:08)
[2022-01-19] MEDS: Pramipexole Di-HCl 0.25 MG TAB PO SCH (08:08)
[2022-01-19] MEDS: Multivitamin W/ Minerals 1 TAB PO SCH (08:08)
[2022-01-19] MEDS: Aspirin 81 mg Enteric Coated Tablet PO SCH (08:08)
[2022-01-19] MEDS: Polyethylene Glycol 3350 17 GM Packet PO SCH (08:09)
[2022-01-19 13:01] VITALS: BP 148/85; TEMP 98.2
== END 2022-01-19 14:16 | DRG 392 ==
LOC: ERS 09:12 → T4-B 12:51 → OBSVTOIN 01-17 11:03
PROVIDERS: ADMIT Student in an Organized Health Care Education/Training Program; ATTEND Student in an Organized Health Care Education/Training Program
DX: K59.00 Constipation, unspecified (principal); Z66 Do not resuscitate; Z20.822 Contact with and (suspected) exposure to COVID-19; E87.2 Acidosis; E87.1 Hypo-osmolality and hyponatremia; I50.42 Chronic combined systolic (congestive) and diastolic (congestive) heart failure; K57.30 Diverticulosis of large intestine without perforation or abscess without bleeding; K44.9 Diaphragmatic hernia without obstruction or gangrene; N28.1 Cyst of kidney, acquired; E87.6 Hypokalemia; I11.0 Hypertensive heart disease with heart failure; E78.5 Hyperlipidemia, unspecified; I27.20 Pulmonary hypertension, unspecified; G25.81 Restless legs syndrome; G62.9 Polyneuropathy, unspecified; K22.2 Esophageal obstruction; E86.1 Hypovolemia; K40.90 Unilateral inguinal hernia, without obstruction or gangrene, not specified as recurrent; D64.9 Anemia, unspecified; R73.9 Hyperglycemia, unspecified; R29.6 Repeated falls; Z88.5 Allergy status to narcotic agent; Z80.3 Family history of malignant neoplasm of breast; Z91.81 History of falling; Z88.6 Allergy status to analgesic agent; Z88.1 Allergy status to other antibiotic agents; Z88.8 Allergy status to other drugs, medicaments and biological substances; Z79.899 Other long term (current) drug therapy; Z79.82 Long term (current) use of aspirin; Z79.01 Long term (current) use of anticoagulants; Z79.51 Long term (current) use of inhaled steroids; Z87.891 Personal history of nicotine dependence
CPT/HCPCS: 36415; 36416; 74177; 80048; 80053; 81003; 81015; 83605; 83690; 83735; 84145; 85025; 87040; 87086; 94640; 96365; 96366; 96367; G0378; J0696; J2543; J3475; J3480; J3490; J7120; J7620; J7626; Q9967; U0003; U0005

== ENCOUNTER 2022-03-29 10:03 | Outpatient (CLI) | payer MEDICARE | END 2022-03-29 10:04 | disposition home or self-care (01) | LOC: RAD 10:03 | PROVIDERS: ATTEND Internal Medicine Critical Care Medicine | DX: R06.00 Dyspnea, unspecified (principal) | CPT/HCPCS: 71046 ==

== ENCOUNTER 2023-06-06 11:18 | Outpatient (CLI) | payer MEDICARE | END 2023-06-06 11:19 | disposition home or self-care (01) | LOC: RAD 11:18 | PROVIDERS: ATTEND Internal Medicine Critical Care Medicine | DX: R06.00 Dyspnea, unspecified (principal); J98.4 Other disorders of lung | CPT/HCPCS: 71046 ==

== ENCOUNTER 2024-01-19 16:46 | Inpatient (IN) | payer MEDICARE ==
[2024-01-19] MEDS ORDERED: Ondansetron PF 4 MG/2 ML Vial ONE (18:01)
[2024-01-19] MEDS ORDERED: Morphine 4 MG/ML VIAL ONE (18:01)
[2024-01-19] MEDS ORDERED: Boostrix 0.5 ML (Tdap) VIAL (>/=7 yrs of age) ONE (18:04)
[2024-01-19] MEDS ORDERED: hydrALAZINE 20 MG/ML VIAL SLOW IVP PRN (18:51)
[2024-01-19] MEDS ORDERED: Ondansetron ODT 4 MG TAB PO PRN (18:51)
[2024-01-19] MEDS ORDERED: Glucagon 1 MG/ML KIT IM PRN (18:51)
[2024-01-19] MEDS ORDERED: Ondansetron PF 4 MG/2 ML Vial IVP PRN (18:51)
[2024-01-19] MEDS ORDERED: Dextrose 50% Abboject 50 ML SYRINGE SLOW IVP PRN (18:51)
[2024-01-19] MEDS ORDERED: Dextrose 5% in Water 1,000 ML IV PRN (18:51)
[2024-01-19 19:40] LABS: #Basophils 0.03 10x3/uL (0.0-0.2); %Basophils 0.3 % (0.0-1.0); %Eosinophils 0.4 % (0.0-10.0); %Lymphocytes 7.3 % (21.0-51.0); %Monocytes 5.7 % (0.0-10.0); Hematocrit 44.1 % (36.0-47.0); Hemoglobin 14.6 g/dL (12.0-16.0); Mean Corpuscular HGB CONC 33.1 g/dL (32.0-36.0); Mean Corpuscular Hemoglobin 30.3 pg (27.0-31.0); Mean Corpuscular Volume 91.5 fL (78.0-98.0); Mean Platelet Volume 13.2 fL (7.4-10.4); Platelet Count 132 10x3/uL (130-400); RBC Distribution Width 14.5 % (11.5-14.5); Red Blood Cell (RBC) Count 4.82 mill/uL (4.20-5.40)
[2024-01-19 19:46] LABS: Globulin 3.8 g/dL (2.4-3.5)
[2024-01-19 19:50] LABS: ALT (SGPT) 18 U/L (8-55); AST (SGOT) 22 U/L (5-34); Albumin 3.6 g/dL (3.4-4.8); Alkaline Phosphatase 82 U/L (40-110); Anion Gap 18 mmol/L (10-20); BUN (Urea Nitrogen) 22 mg/dL (9.8-20.1); Bilirubin, Total 0.8 mg/dL (0.2-1.2); Calc. Creatinine Clearance 0 mL/min (70-130); Calcium 9.6 mg/dL (7.8-10.44); Carbon Dioxide 20 mmol/L (23-31); Chloride 100 mmol/L (98-107); Estimated GFR 80; Glucose 94 mg/dL (83-110); Potassium 4.1 mmol/L (3.5-5.1); Protein, Total 7.4 g/dL (5.8-8.1); Sodium 134 mmol/L (136-145)
[2024-01-19 19:56] LABS: INR-International Normal Ratio 1.3; PTT 25.1 sec (22.9-36.1); Prothrombin Time 16.7 sec (12.0-14.7)
[2024-01-19 20:40] LABS: Actual Bicarbonate (HCO3v) 20.2 mEq/L (22-28); Base Excess -6.5 mEq/L (-2.0 to +3.0); Calcium, Ionized (venous) 1.15 mmol/L (1.16-1.32); Chloride (VBG) 96 mmol/L (98-106); Hematocrit-VBG 45 % (36.0-47.0); Hemoglobin (Hb) 15.2 g/dL (11.7-16.1); Potassium (VBG) 3.99 mmol/L (3.70-5.30); Sodium 134 mmol/L (133-146); pH (venous) 7.276 (7.32-7.43)
[2024-01-19] MEDS: Famotidine 20 MG TAB PO SCH (21:54)
[2024-01-19 22:47] VITALS: BMI 15.0
[2024-01-19] MEDS: Acetaminophen 325 MG TAB PO PRN (23:10)
[2024-01-20 06:07] LABS: #Basophils 0.04 10x3/uL (0.0-0.2); %Basophils 0.5 % (0.0-1.0); %Eosinophils 4.3 % (0.0-10.0); %Lymphocytes 11.7 % (21.0-51.0); %Monocytes 9.5 % (0.0-10.0); %Neutrophils 73.6 % (42.0-75.0); Hematocrit 36.2 % (36.0-47.0); Hemoglobin 11.6 g/dL (12.0-16.0); Mean Corpuscular Hemoglobin 30.1 pg (27.0-31.0); Mean Corpuscular Volume 93.8 fL (78.0-98.0); Mean Platelet Volume 12.7 fL (7.4-10.4); Platelet Count 105 10x3/uL (130-400); RBC Distribution Width 14.5 % (11.5-14.5); Red Blood Cell (RBC) Count 3.86 mill/uL (4.20-5.40)
[2024-01-20 06:23] LABS: Anion Gap 11 mmol/L (10-20); BUN (Urea Nitrogen) 22 mg/dL (9.8-20.1); Calc. Creatinine Clearance 31 mL/min (70-130); Calcium 8.5 mg/dL (7.8-10.44); Carbon Dioxide 23 mmol/L (23-31); Chloride 102 mmol/L (98-107); Estimated GFR 81; Glucose 76 mg/dL (83-110); Potassium 3.9 mmol/L (3.5-5.1); Sodium 132 mmol/L (136-145)
[2024-01-20] MEDS ORDERED: EPINEPHrine 1 MG/ML VIAL ONE (07:31)
[2024-01-20] MEDS ORDERED: Vancomycin 1 GM VIAL ONE (07:31)
[2024-01-20] MEDS ORDERED: Bupivacaine PF 0.5% 30 ML VIAL ONE (07:32)
[2024-01-20] MEDS ORDERED: fentaNYL PF 100 MCG/2 ML SYRINGE ONE (07:46)
[2024-01-20] MEDS ORDERED: PROPOFOL 20 ML ONE (07:46)
[2024-01-20] MEDS ORDERED: Lidocaine 1% PF 5 ML VIAL ONE (07:46)
[2024-01-20] MEDS ORDERED: Pharmacy TO RENALLY ADJUST ABX FS SCH (08:30)
[2024-01-20] MEDS ORDERED: PHENYLEPHRINE-NS 100 MCG/ML 10 ML SYRINGE ONE (08:47)
[2024-01-20] MEDS ORDERED: Promethazine HCl 25 MG/ML VIAL IM PRN (08:52)
[2024-01-20] MEDS ORDERED: Ondansetron HCl/PF 4 MG/2 ML Vial IVP PRN (08:52)
[2024-01-20] MEDS: Acetaminophen/Codeine 30-300mg Tablet PO PRN (13:08)
[2024-01-20] MEDS: CEFAZOLIN 2 GM in Sodium Chloride 0.9% 100 ML IVPB SCH (17:31)
[2024-01-21 07:11] LABS: #Basophils 0.03 10x3/uL (0.0-0.2); %Basophils 0.4 % (0.0-1.0); %Lymphocytes 9.2 % (21.0-51.0); %Monocytes 10.6 % (0.0-10.0); %Neutrophils 75.5 % (42.0-75.0); Hematocrit 36.1 % (36.0-47.0); Hemoglobin 11.9 g/dL (12.0-16.0); Mean Corpuscular Hemoglobin 29.8 pg (27.0-31.0); Mean Corpuscular Volume 90.5 fL (78.0-98.0); Mean Platelet Volume 10.9 fL (7.4-10.4); Platelet Count 107 10x3/uL (130-400); RBC Distribution Width 14.2 % (11.5-14.5); Red Blood Cell (RBC) Count 3.99 mill/uL (4.20-5.40)
[2024-01-21 07:13] LABS: Globulin 3.2 g/dL (2.4-3.5)
[2024-01-21 07:17] LABS: ALT (SGPT) 11 U/L (8-55); AST (SGOT) 23 U/L (5-34); Albumin 2.9 g/dL (3.4-4.8); Alkaline Phosphatase 64 U/L (40-110); Anion Gap 14 mmol/L (10-20); BUN (Urea Nitrogen) 15 mg/dL (9.8-20.1); Bilirubin, Total 0.6 mg/dL (0.2-1.2); Calc. Creatinine Clearance 33 mL/min (70-130); Calcium 8.7 mg/dL (7.8-10.44); Carbon Dioxide 24 mmol/L (23-31); Chloride 102 mmol/L (98-107); Estimated GFR 86; Glucose 84 mg/dL (83-110); Potassium 3.6 mmol/L (3.5-5.1); Protein, Total 6.1 g/dL (5.8-8.1); Sodium 136 mmol/L (136-145)
[2024-01-21 12:08] VITALS: BMI 15.0
[2024-01-21] MEDS ORDERED: traMADol HCl 50 MG TAB PO PRN ×2 (14:20→14:21)
[2024-01-21] MEDS: Morphine 2 MG/ML VIAL SLOW IVP PRN (21:31)
[2024-01-21] MEDS: Famotidine 20 MG TAB PO SCH (21:31)
[2024-01-21] MEDS: Apixaban 2.5 MG TAB PO SCH (21:31)
[2024-01-22 09:46] LABS: Hematocrit 39.8 % (36.0-47.0); Hemoglobin 12.4 g/dL (12.0-16.0); Mean Corpuscular HGB CONC 31.2 g/dL (32.0-36.0); Mean Corpuscular Hemoglobin 30.2 pg (27.0-31.0); Mean Corpuscular Volume 96.8 fL (78.0-98.0); Mean Platelet Volume 12.7 fL (7.4-10.4); Platelet Count 122 10x3/uL (130-400); RBC Distribution Width 14.1 % (11.5-14.5); Red Blood Cell (RBC) Count 4.11 mill/uL (4.20-5.40)
[2024-01-22] MEDS ORDERED: Bisacodyl 5 MG TAB PO PRN (10:45)
[2024-01-22] MEDS: Acetaminophen 500 MG TAB PO SCH (11:25)
[2024-01-22] MEDS ORDERED: Albuterol 200 PUFF (6.7GM INHALER) INH PRN (21:26)
[2024-01-22] MEDS: Gabapentin 100 MG CAP PO SCH (21:40)
[2024-01-23] MEDS ORDERED: Ibuprofen 600 MG TAB PO PRN (00:41)
[2024-01-23] MEDS: Furosemide 20 MG (2 mL) VIAL SLOW IVP SCH (00:49)
[2024-01-23] MEDS: Ipratropium/Albuterol 3 ML NEB NEB SCH (01:03)
[2024-01-23 01:55] LABS: #Basophils 0.03 10x3/uL (0.0-0.2); %Basophils 0.4 % (0.0-1.0); %Eosinophils 3.7 % (0.0-10.0); %Lymphocytes 12.1 % (21.0-51.0); %Monocytes 10.4 % (0.0-10.0); %Neutrophils 72.8 % (42.0-75.0); Hematocrit 34.4 % (36.0-47.0); Hemoglobin 11.2 g/dL (12.0-16.0); Mean Corpuscular HGB CONC 32.6 g/dL (32.0-36.0); Mean Corpuscular Hemoglobin 30.3 pg (27.0-31.0); Mean Platelet Volume 12.6 fL (7.4-10.4); Platelet Count 136 10x3/uL (130-400); RBC Distribution Width 14.1 % (11.5-14.5)
[2024-01-23 02:19] LABS: Anion Gap 13 mmol/L (10-20); BUN (Urea Nitrogen) 11 mg/dL (9.8-20.1); Calc. Creatinine Clearance 42 mL/min (70-130); Calcium 8.7 mg/dL (7.8-10.44); Carbon Dioxide 26 mmol/L (23-31); Chloride 98 mmol/L (98-107); Estimated GFR 91; Glucose 106 mg/dL (83-110); Magnesium 1.8 mg/dL (1.6-2.6); Phosphorus 2.3 mg/dL (2.3-4.7); Potassium 3.4 mmol/L (3.5-5.1); Sodium 134 mmol/L (136-145)
[2024-01-23] MEDS ORDERED: Polyethylene Glycol 3350 17 GM Packet PO SCH (09:00)
[2024-01-23] MEDS: Ferrous Sulfate 325 MG TAB PO SCH (09:24)
[2024-01-23] MEDS: Folic Acid 1 MG TAB PO SCH (09:24)
[2024-01-23] MEDS: Rosuvastatin 10 MG TAB PO SCH (09:24)
[2024-01-23] MEDS: Potassium Chloride 20 MEQ TAB PO SCH (09:24)
[2024-01-23] MEDS: Pantoprazole DR 40 MG TAB PO SCH (09:25)
[2024-01-23] MEDS: Senokot S 8.6-50 MG TAB PO SCH (09:25)
[2024-01-23] MEDS: Acetaminophen 325 MG TAB PO SCH (09:25)
[2024-01-23] MEDS: Lactulose 20 GM (30 mL) UDCUP PO SCH (09:26)
[2024-01-23] MEDS: Polyethylene Glycol 3350 17 GM Packet PO SCH (09:26)
[2024-01-23] MEDS: buPROPion 75 MG TAB PO SCH (09:26)
[2024-01-23] MEDS: Ipratropium Bromide 0.03% Nasal Inhaler 30 ml Bottle EA NARE SCH (12:20)
[2024-01-23] MEDS: Gabapentin 100 MG CAP PO SCH (20:26)
[2024-01-23] MEDS: Mirtazapine 15 MG TAB PO SCH (20:26)
[2024-01-24 09:08] VITALS: BP 148/89; TEMP 97.8
[2024-01-24] MEDS ORDERED: Ipratropium/Albuterol 3 ML NEB NEB PRN (13:12)
== END 2024-01-24 17:58 | DRG 480 ==
LOC: ERS 16:46 → SURG B 18:51
PROVIDERS: ADMIT Student in an Organized Health Care Education/Training Program; ATTEND Student in an Organized Health Care Education/Training Program
PROC: 0QS604Z Reposition Right Upper Femur with Internal Fixation Device, Open Approach (ICD-10-PCS; principal; 2024-01-20)
PROC: 3E033XZ Introduction of Vasopressor into Peripheral Vein, Percutaneous Approach (ICD-10-PCS; 2024-01-20)
DX: S72.001A Fracture of unspecified part of neck of right femur, initial encounter for closed fracture (principal); E43 Unspecified severe protein-calorie malnutrition; J96.01 Acute respiratory failure with hypoxia; I50.42 Chronic combined systolic (congestive) and diastolic (congestive) heart failure; Z68.1 Body mass index [BMI] 19.9 or less, adult; W18.30XA Fall on same level, unspecified, initial encounter; J44.9 Chronic obstructive pulmonary disease, unspecified; E78.00 Pure hypercholesterolemia, unspecified; Z98.890 Other specified postprocedural states; Z87.891 Personal history of nicotine dependence; Z88.8 Allergy status to other drugs, medicaments and biological substances; Z79.899 Other long term (current) drug therapy; F41.9 Anxiety disorder, unspecified; I11.0 Hypertensive heart disease with heart failure
CPT/HCPCS: 36415; 70450; 71045; 72170; 80048; 80053; 82805; 83735; 83880; 84100; 85025; 85027; 85610; 85730; 90471; 90715; 93005; 93010; 94640; 96361; 96374; 96375; 97139; C1713; G0390; J0171; J0665; J1940; J2270; J2272; J2405; J2704; J3370; J3490; J7620

== ENCOUNTER 2024-06-04 11:20 | Outpatient (CLI) | payer MEDICARE | END 2024-06-04 11:21 | disposition home or self-care (01) | LOC: RAD 11:20 | PROVIDERS: ATTEND Internal Medicine Critical Care Medicine | DX: R06.00 Dyspnea, unspecified (principal) | CPT/HCPCS: 71046 ==